=== PATIENT | female | born 1940 | race Two or more races ===

== ENCOUNTER 2018-12-30 22:18 | Inpatient (IN) | payer MEDICARE, MEDICAID ==
[~2018-12-30] VITALS: Ht 157.5 cm; Wt 57.6 kg
--- NOTE | 2018-12-30 22:35 | NUR ---
ED Nurse Note: Pt c/o weakness and fatigued x 1 month, with bilat shoulder pain intermittently. night sweats also. ao4. nad. vss. hard of hearing. family at bedside.
--- NOTE | 2018-12-30 22:55 | NUR ---
ED Nurse Note: iv access established. blood and urine collected; sent down to lab.
[2018-12-30] MEDS ORDERED: Albuterol/Ipratropium 3ml neb HHN ONE (23:00)
[2018-12-30 23:02] VITALS: BP 148/73
[2018-12-30 23:14] LABS: APPEARANCE,URINE CLEAR; BILIRUBIN, URINE NEGATIVE (NEGATIVE); COLOR,URINE PALE YELLOW; GLUCOSE, URINE (UA) NEGATIVE (NEGATIVE); KETONES,URINE NEGATIVE (NEGATIVE); LEUKOCYTE ESTERASE ,URINE NEGATIVE (NEGATIVE); NITRITE,URINE NEGATIVE (NEGATIVE); PH,URINE 7 (4.5-8.0); PROTEIN,URINE NEGATIVE (NEGATIVE); UROBILINOGEN,URINE NORMAL MG/DL (0.0-1.0)
[2018-12-30 23:17] LABS: BASOPHILS % (AUTO) 0.7 % (0.0-2.0); EOSINOPHILS % (AUTO) 4.6 % (0.0-3.0); HEMATOCRIT 41.3 % (37.0-47.0); LYMPHOCYTES % (AUTO) 27.2 % (20.0-45.0); MEAN CORPUSCULAR VOLUME 82 FL (80-99); MONOCYTES % (AUTO) 7.6 % (1.0-10.0); NEUTROPHILS % (AUTO) 59.9 % (45.0-75.0); PLATELET COUNT 237 K/UL (150-450); RED BLOOD COUNT 5.02 M/UL (4.20-5.40); WHITE BLOOD COUNT 8.5 K/UL (4.8-10.8)
--- NOTE | 2018-12-30 23:28 | Emergency Room Report ---
History of Present Illness General Chief Complaint: Generalized Weakness Source: Patient Present Illness HPI Resents with generalized weakness. This been progressing over the last 3 to 4 days. In addition last night she had a temperature up to 102. She is also been coughing and has wheezing. She has a history of asthma. She denies vomiting nausea dysuria diarrhea. She also diabetic. She is been taking her medications for diabetes. She also complains about left-sided chest pain radiating to her left arm. The pain is rated 5/10 and poorly characterized. She is also had dyspnea with wheezing. She has a history of asthma. Hard of hearing. No chills, sore throat, palpitations, nausea, vomiting, diarrhea, dysuria, abdominal pain, shortness of breath, joint pain, rashes, depression, anxiety, visual changes, headache. Allergies: Coded Allergies: No Known Allergies (Unverified , 12/30/18) Patient History Past Medical History: see triage record Social History: Denies: smoking Social History Narrative With her daughter Reviewed Nursing Documentation: PMH: Agreed; PSxH: Agreed Nursing Documentation-PMH Hx Asthma: Yes Hx Diabetes: Yes Review of Systems All Other Systems: negative except mentioned in HPI Physical Exam Vital Signs Date Time Temp Pulse Resp B/P (MAP) Pulse Ox O2 Delivery O2 Flow Rate FiO2 12/30/18 22:24 98.4 81 18 123/73 (90) 96 Room Air 12/30/18 22:57 21 Sp02 EP Interpretation: reviewed, normal General Appearance: well appearing, no apparent distress, GCS 15, non-toxic Head: normocephalic Eyes: bilateral eye normal inspection, bilateral eye PERRL ENT: moist mucus membranes, other - Extremely hard of hearing Neck: supple Respiratory: chest non-tender, lungs clear, normal breath sounds Cardiovascular #1: regular rate, rhythm Cardiovascular #2: 2+ radial (R) Gastrointestinal: normal inspection, normal bowel sounds, non tender, no mass, non-distended Genitourinary: no CVA tenderness Musculoskeletal: back normal, gait/station normal, normal range of motion Neurologic: alert, motor strength/tone normal, DTRs symmetric, sensory intact, oriented - X2 Psychiatric: mood/affect normal Skin: no rash Medical Decision Making Diagnostic Impression: Primary Impression: Chest pain Qualified Codes: R07.9 - Chest pain, unspecified Additional Impressions: Bronchospasm History of fever Weakness ER Course Diabetic patient presents with fever chills dyspnea chest pain and weakness. Differential includes acute myocardial infarction, urinary syndrome, pneumonia, occult infection, UTI, exacerbation of COPD, elect light imbalance, hyperglycemia amongst others. Patient will be evaluated with EKG, chest x-ray and labs occluding blood cultures and lactate. The patient will be treated with IV hydration and observation. Breathing treatments are given. EKG with no acute injury but low voltage. Chest x-ray with pleural plaque. Labs with normal white count no left shift. Initial troponin is negative. Patient somewhat improved but still weak and somewhat dyspneic. Patient needs admission to the hospital telemetry for repeat troponins and observation. Patient had an episode of chills here. Tylenol was given orally. Improved. Admit to telemetry . Laboratory Tests Test 12/30/18 22:40 White Blood Count 8.5 K/UL (4.8-10.8) Red Blood Count 5.02 M/UL (4.20-5.40) Hemoglobin 14.0 G/DL (12.0-16.0) Hematocrit 41.3 % (37.0-47.0) Mean Corpuscular Volume 82 FL (80-99) Mean Corpuscular Hemoglobin 27.9 PG (27.0-31.0) Mean Corpuscular Hemoglobin Concent 33.9 G/DL (32.0-36.0) Red Cell Distribution Width 12.0 % (11.6-14.8) Platelet Count 237 K/UL (150-450) Mean Platelet Volume 6.4 FL (6.5-10.1) L Neutrophils (%) (Auto) 59.9 % (45.0-75.0) Lymphocytes (%) (Auto) 27.2 % (20.0-45.0) Monocytes (%) (Auto) 7.6 % (1.0-10.0) Eosinophils (%) (Auto) 4.6 % (0.0-3.0) H Basophils (%) (Auto) 0.7 % (0.0-2.0) Prothrombin Time 10.0 SEC (9.30-11.50) Prothrombin Time INR 0.9 (0.9-1.1) PTT 27 SEC (23-33) Urine Color Pale yellow Urine Appearance Clear Urine pH 7 (4.5-8.0) Urine Specific [place] 1.010 (1.005-1.035) Urine Protein Negative (NEGATIVE) Urine Glucose (UA) Negative (NEGATIVE) Urine Ketones Negative (NEGATIVE) Urine Blood Negative (NEGATIVE) Urine Nitrite Negative (NEGATIVE) Urine Bilirubin Negative (NEGATIVE) Urine Urobilinogen Normal MG/DL (0.0-1.0) Urine Leukocyte Esterase Negative (NEGATIVE) Sodium Level 140 MMOL/L (136-145) Potassium Level 3.5 MMOL/L (3.5-5.1) Chloride Level 102 MMOL/L (98-107) Carbon Dioxide Level 29 MMOL/L (21-32) Anion Gap 10 mmol/L (5-15) Blood Urea Nitrogen 14 mg/dL (7-18) Creatinine 1.1 MG/DL (0.55-1.30) Estimate Glomerular Filtration Rate mL/min (>60) Glucose Level 83 MG/DL (74-106) Lactic Acid Level 1.80 mmol/L (0.4-2.0) Calcium Level 9.4 MG/DL (8.5-10.1) Magnesium Level 2.0 MG/DL (1.8-2.4) Total Bilirubin 0.5 MG/DL (0.2-1.0) Aspartate Amino Transferase (AST) 22 U/L (15-37) Alanine Aminotransferase (ALT) 24 U/L (12-78) Alkaline Phosphatase 111 U/L (46-116) Total Creatine Kinase 209 U/L (26-308) Troponin I 0.054 ng/mL (0.000-0.056) Pro-B-Type Natriuretic Peptide 793 pg/mL (0-125) H Total Protein 7.9 G/DL (6.4-8.2) Albumin 3.8 G/DL (3.4-5.0) Globulin 4.1 g/dL Albumin/Globulin Ratio 0.9 (1.0-2.7) L Lipase 238 U/L (73-393) EKG Diagnostic Results Rate: normal Rhythm: NSR ST Segments: no acute changes Rhythm Strip Diag. Results EP Interpretation: yes Rhythm: NSR, no PVC's, no ectopy Chest X-Ray Diagnostic Results Chest X-Ray Diagnostic Results : Chest X-Ray Ordered: Yes # of Views/Limited/Complete: 1 View Indication: Other EP Interpretation: Yes Interpretation: no consolidation, no effusion, no pneumothorax, other - Pleural plaque Impression: Other Electronically Signed by: Electronically signed by Marcos Villalba MD Last Vital Signs Date Time Temp Pulse Resp B/P (MAP) Pulse Ox O2 Delivery O2 Flow Rate FiO2 12/31/18 07:47 97.0 73 20 119/62 (81) 98 12/31/18 05:22 Nasal Cannula 28 Status: improved Disposition: ADMITTED INPATIENT Condition: Serious Referrals: NOT CHOSEN IPA/,REFERRING (PCP) Macros Villalba MD Dec 30, 2018 23:28
[2018-12-30 23:30] LABS: INR 0.9 (0.9-1.1)
[2018-12-31 00:03] LABS: ANION GAP 10 mmol/L (5-15); BLOOD UREA NITROGEN 14 mg/dL (7-18); CALCIUM 9.4 MG/DL (8.5-10.1); CARBON DIOXIDE 29 MMOL/L (21-32); CHLORIDE 102 MMOL/L (98-107); CREATININE 1.1 MG/DL (0.55-1.30); POTASSIUM 3.5 MMOL/L (3.5-5.1); SODIUM 140 MMOL/L (136-145)
[2018-12-31 00:13] LABS: ALANINE AMINOTRANSFERASE 24 U/L (12-78); ALBUMIN 3.8 G/DL (3.4-5.0); ALBUMIN/GLOBULIN RATIO 0.9 (1.0-2.7); ALKALINE PHOSPHATASE 111 U/L (46-116); ASPARTATE AMINO TRANSFERASE 22 U/L (15-37); BILIRUBIN,TOTAL 0.5 MG/DL (0.2-1.0); CREATINE KINASE 209 U/L (26-308)
[2018-12-31] MEDS ORDERED: Miralax 17gm pkt ORAL PRN (00:30)
[2018-12-31] MEDS ORDERED: Mylanta II UD 30ml ORAL PRN (00:30)
--- NOTE | 2018-12-31 00:45 | NUR ---
TRANSFER TO FLOOR: Patient transferred to TELEMETRY OVERFLOW 241 as ordered, per AZUL DOAN. Report given to ELIANA RN BY AZUL DUBON. BELONGINGS LIST COMPLETED WITH RECEIVING RN.
--- NOTE | 2018-12-31 00:48 | NUR ---
NURSE NOTES: Received a phone report from AZUL Soto.Patient ambulatory stable,SR on monitor and storage bin tender,A&O x4,Albanian speaking,hard of hearing,tolerated r/air well,skin intact,IV asymptomatic,intact on L AC G 18 SL,meds reconciliation done,waiting patient to bring to the floor
[2018-12-31 01:00] VITALS: BP 132/58
--- NOTE | 2018-12-31 01:00 | NUR ---
NURSE NOTES: Received a patient from ER by tuan from Gordon Levi RN.Patient ambulatory stable,A&Ox4,no c/o SOB,no respiratory distress at this moment,SR on cardiac cath lab technologist,clear lungs sounds bilateral,BS active in all quadrants,belongings list signed,cane at bedside,bed secured in a low safety position,call light within a reach,nice at bedside.Will continue to monitor and follow POC
[2018-12-31 04:00] VITALS: BP 134/62
[2018-12-31] MEDS: Nitroglycerin Subl 0.4mg tab SL PRN ×3 (04:57→05:15)
--- NOTE | 2018-12-31 05:00 | NUR ---
NURSE NOTES: Patient c/o severe chest pain and radiated pain to the L arm.Tylenol given,Ntg given x3,breathing treatment done by RT.EKG done by RN. received a Troponin level 0.060 from Nichole,lab.Called and left massage regarding pt's condition.Waiting for respond.Charge nurse aware.
[2018-12-31] MEDS: Albuterol/Ipratropium 3ml neb HHN PRN ×2 (05:17→15:41)
--- NOTE | 2018-12-31 06:50 | NUR ---
NURSE NOTES: notified regarding patient's condition,waiting for responding,charge nurse aware.
--- NOTE | 2018-12-31 07:00 | NUR ---
NURSE NOTES: Patient sleeping at this moment,no c/o SOB,no s/s of pain at this moment.Next shift will endorse.
--- NOTE | 2018-12-31 07:20 | NUR ---
HAND-OFF: Report given to AZUL Mcadams.Patient sleeping at this moment,family at bedside.
[2018-12-31] MEDS ORDERED: Morphine Sulfate 2mg/ml Inj(IV/IM USE ONLY) IVP SCH (07:24)
--- NOTE | 2018-12-31 07:25 | NUR ---
NURSE NOTES: Report received from Patricia Jeffery RN.Pt resting in bed awake,alert oriented,but NENANA in no resp distress c/o discomfort like chest pain , SR on the monitor,kept NPO IV site heplock to LAC intact,skin warm and dry call torres within reach ,SR up x2 HOB elevated,bed lock in lowest position,will continue with plans of care, will give PRN medic for pain,family member at bedside.
[2018-12-31 07:47] VITALS: BP 119/62
--- NOTE | 2018-12-31 08:46 | History and Physical ---
History of Present Illness General Date patient seen: Dec 31, 2018 Reason for Hospitalization: Generalized Weakness Present Illness HPI presents with generalized weakness. This been progressing over the last 3 to 4 days. In addition last night she had a temperature up to 102. She is also been coughing and has wheezing. She has a history of asthma. She denies vomiting nausea dysuria diarrhea. She also diabetic. She is been taking her medications for diabetes. She also complains about left-sided chest pain radiating to her left arm. Patient states the pain improved with nitro and is worse on exertion. Patient states the cough is chronic. Denies current chills or fever, denies abd pain, n , v, dysuria. Allergies: Coded Allergies: No Known Allergies (Unverified , 12/30/18) Patient History Healthcare decision maker Resuscitation status Full Code Advanced Directive on File No Past Medical/Surgical History Past Medical/Surgical History: (1) 23-polyvalent pneumococcal polysaccharide vaccine indication of diabetes in patient 6 to 64 years of age (2) Asthma Review of Systems All Other Systems: negative except mentioned in HPI Physical Exam Last 24 Hour Vital Signs Date Time Temp Pulse Resp B/P (MAP) Pulse Ox O2 Delivery O2 Flow Rate FiO2 12/31/18 07:47 97.0 73 20 119/62 (81) 98 12/31/18 05:22 81 22 97 Nasal Cannula 28 12/31/18 05:16 74 18 90 Room Air 21 12/31/18 05:15 113/64 12/31/18 05:08 119/72 12/31/18 04:57 125/63 12/31/18 04:03 81 12/31/18 04:00 97.9 76 20 134/62 (86) 97 12/31/18 01:49 Room Air 12/31/18 01:00 97.3 80 20 132/58 (82) 95 12/31/18 00:45 98.4 78 22 148/73 99 Room Air 21 12/31/18 00:33 98.4 12/30/18 23:15 77 22 99 Room Air 21 12/30/18 23:02 67 18 Room Air 21 12/30/18 23:02 98.4 78 18 148/73 97 Room Air 21 12/30/18 23:01 21 12/30/18 22:57 67 18 97 Room Air 21 12/30/18 22:24 98.4 81 18 123/73 (90) 96 Room Air Laboratory Tests Test 12/30/18 22:40 12/31/18 03:11 White Blood Count 8.5 K/UL (4.8-10.8) Red Blood Count 5.02 M/UL (4.20-5.40) Hemoglobin 14.0 G/DL (12.0-16.0) Hematocrit 41.3 % (37.0-47.0) Mean Corpuscular Volume 82 FL (80-99) Mean Corpuscular Hemoglobin 27.9 PG (27.0-31.0) Mean Corpuscular Hemoglobin Concent 33.9 G/DL (32.0-36.0) Red Cell Distribution Width 12.0 % (11.6-14.8) Platelet Count 237 K/UL (150-450) Mean Platelet Volume 6.4 FL (6.5-10.1) L Neutrophils (%) (Auto) 59.9 % (45.0-75.0) Lymphocytes (%) (Auto) 27.2 % (20.0-45.0) Monocytes (%) (Auto) 7.6 % (1.0-10.0) Eosinophils (%) (Auto) 4.6 % (0.0-3.0) H Basophils (%) (Auto) 0.7 % (0.0-2.0) Prothrombin Time 10.0 SEC (9.30-11.50) Prothromb Time International Ratio 0.9 (0.9-1.1) Activated Partial Thromboplast Time 27 SEC (23-33) Urine Color Pale yellow Urine Appearance Clear Urine pH 7 (4.5-8.0) Urine Specific [place] 1.010 (1.005-1.035) Urine Protein Negative (NEGATIVE) Urine Glucose (UA) Negative (NEGATIVE) Urine Ketones Negative (NEGATIVE) Urine Blood Negative (NEGATIVE) Urine Nitrite Negative (NEGATIVE) Urine Bilirubin Negative (NEGATIVE) Urine Urobilinogen Normal MG/DL (0.0-1.0) Urine Leukocyte Esterase Negative (NEGATIVE) Sodium Level 140 MMOL/L (136-145) Potassium Level 3.5 MMOL/L (3.5-5.1) Chloride Level 102 MMOL/L (98-107) Carbon Dioxide Level 29 MMOL/L (21-32) Anion Gap 10 mmol/L (5-15) Blood Urea Nitrogen 14 mg/dL (7-18) Creatinine 1.1 MG/DL (0.55-1.30) Estimat Glomerular Filtration Rate mL/min (>60) Glucose Level 83 MG/DL (74-106) Lactic Acid Level 1.80 mmol/L (0.4-2.0) Calcium Level 9.4 MG/DL (8.5-10.1) Magnesium Level 2.0 MG/DL (1.8-2.4) Total Bilirubin 0.5 MG/DL (0.2-1.0) Aspartate Amino Transf (AST/SGOT) 22 U/L (15-37) Alanine Aminotransferase (ALT/SGPT) 24 U/L (12-78) Alkaline Phosphatase 111 U/L (46-116) Total Creatine Kinase 209 U/L (26-308) Troponin I 0.054 ng/mL (0.000-0.056) 0.060 ng/mL (0.000-0.056) Pro-B-Type Natriuretic Peptide 793 pg/mL (0-125) H Total Protein 7.9 G/DL (6.4-8.2) Albumin 3.8 G/DL (3.4-5.0) Globulin 4.1 g/dL Albumin/Globulin Ratio 0.9 (1.0-2.7) L Lipase 238 U/L (73-393) Height (Feet): 5 Height (Inches): 2.00 Weight (Pounds): 132 Medications Current Medications Medications (Trade) Dose Ordered Sig/Tangela Route PRN Reason Start Time Stop Time Status Last Admin Dose Admin Acetaminophen (Tylenol) 650 mg Q4H PRN ORAL Mild Pain (Pain Scale 1-3) 12/31/18 04:00 01/30/19 03:59 12/31/18 04:55 Al Hydroxide/Mg Hydroxide (Mylanta II) 30 ml Q6H PRN ORAL dyspepsia 12/31/18 00:30 01/30/19 00:29 Albuterol/ Ipratropium (Albuterol/ Ipratropium) 3 ml Q6H PRN HHN Shortness of Breath 12/31/18 00:30 01/05/19 00:29 12/31/18 05:17 Aspirin (ASA) 81 mg DAILY ORAL 12/31/18 09:00 01/30/19 08:59 Dextrose (Dextrose 50%) 25 ml Q30M PRN IV Hypoglycemia 12/31/18 00:30 01/30/19 00:29 Dextrose (Dextrose 50%) 50 ml Q30M PRN IV Hypoglycemia 12/31/18 00:30 01/30/19 00:29 Diphenhydramine HCl (Benadryl) 25 mg Q6H PRN ORAL Itching/Pruritis 12/31/18 00:30 01/30/19 00:29 Docusate Sodium (Colace) 100 mg EVERY 12 HOURS ORAL 12/31/18 09:00 01/30/19 08:59 Heparin Sodium (Porcine) (Heparin 5000 units/ml) 5,000 units EVERY 12 HOURS SUBQ 12/31/18 09:00 01/30/19 08:59 Nitroglycerin (Ntg) 0.4 mg Q5M PRN SL Prn Chest Pain 12/31/18 00:30 01/30/19 00:29 12/31/18 05:15 Ondansetron HCl (Zofran) 4 mg Q6H PRN IVP Nausea & Vomiting 12/31/18 00:30 01/30/19 00:29 Polyethylene Glycol (Miralax) 17 gm DAILYPRN PRN ORAL Constipation 12/31/18 00:30 01/30/19 00:29 Objective Narrative GEN: WWN, NAD, Alert CV: RRR, no M, R, G, no jvd RESP: CTAB, no w/r/c ABD: normal bowel sounds, soft, mild diffuse tenderness EXT: normal muscle tone, no tenderness NEURO: grossly normal, no tremors, a x o x 3 Assessment/Plan Diagnosis [place] I: 78 yo F PMH of DM-2, HTN, DLD, Asthma, Osteoperosis, presents complaining of left sided exertional chest pain,fever of 102, and weakness x 3 months. # NSTEMI - trend troponin - trend ekg's - tele - tte - cards consult: Dr. Melo - keep npo except meds - lipitor - asa - hep gtt # Fever- resolved - no leukocytosis or active new complaints - us neg - f/u cxr - check blood culture - trend cbc # DM - ISS - accuchecks qac and qhs # DLD - statin - flp # Asthma - stable # Osteoperosis # FULL CODE - time spent in discussion :17 minutes time of my note does not reflect time of encounter Cris Mariee DO Dec 31, 2018 08:46
[2018-12-31] MEDS ORDERED: Heparin 5000 units/ml inj SUBQ SCH (09:00)
--- NOTE | 2018-12-31 09:00 | NUR ---
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
[2018-12-31] MEDS: Docusate 100mg cap ORAL SCH ×2 (09:06→20:44)
[2018-12-31] MEDS: Aspirin Baby 81mg ORAL SCH (09:06)
--- NOTE | 2018-12-31 09:45 | NUR ---
NURSE NOTES: Called Dr Mariee re critical value Troponin 0.175,call returned but no orders noted.
--- NOTE | 2018-12-31 10:35 | NUR ---
NURSE NOTES: P.T working with pt,ambulated around the hallway with cane,activity tolerated ,no sob presented.
[2018-12-31 12:00] VITALS: BP 115/50
[2018-12-31] MEDS ORDERED: Heparin 5000 units/ml inj IV SCH (12:04)
[2018-12-31] MEDS ORDERED: Heparin 25,000u/D5W 500ml 500 ML IV SCH (12:05)
--- NOTE | 2018-12-31 13:05 | Diagnostic Imaging Report ---
Indication: Cough, shortness of breath Technique: One view of the chest Comparison: None Findings: Calcified granuloma projects in the left suprahilar region. Lungs and pleural spaces are otherwise clear. The heart size is normal. Impression: Evidence of old granulomatous disease. No acute process
--- NOTE | 2018-12-31 13:25 | NUR ---
P.T Note: Evaluation completed and treatment initiated. Please refer to P.T evaluation for current functional status. Please refer to P.T evaluation for current functional status. Pt is alert, oriented x 4, pleasant and cooperative. Pt denied c/o pain but reports c/o generalized weakness. Pt currently require SBA X 1 for bed mobilities, transfers and gait/ambulation activities using her cane for return to PLOF. Skilled P.T service is warranted to improve her strength and endurance to increase her mobility independence and safety. Pt is cleared for OOB activities with nursing. Thank you for this referral.
--- NOTE | 2018-12-31 13:34 | Consultation ---
History of Present Illness General Date patient seen: Dec 31, 2018 Time patient seen: 13:31 Chief Complaint: Generalized Weakness Present Illness HPI Pt c/o weakness and fatigued x 1 month. Patient c/o severe chest pain and radiated pain to the L arm. Troponin 0.06. Hx of DM. Allergies: Coded Allergies: No Known Allergies (Unverified , 12/30/18) Patient History Healthcare decision maker Resuscitation status Full Code Advanced Directive on File No Review of Systems Constitutional: Reports: no symptoms Eye: Reports: no symptoms ENT: Reports: no symptoms Respiratory: Reports: cough, orthopnea, shortness of breath Cardiovascular: Reports: chest pain, palpitations Gastrointestinal: Reports: no symptoms Genitourinary: Reports: no symptoms Musculoskeletal: Reports: no symptoms Skin: Reports: no symptoms Psychiatric: Reports: no symptoms Neurological: Reports: no symptoms Endocrine: Reports: no symptoms Hematologic/Lymphatic: Reports: no symptoms Physical Exam General Appearance: no apparent distress, alert Lines, tubes and drains: peripheral HEENT: normocephalic, atraumatic, anicteric, mucous membranes moist, PERRL Neck: non-tender, normal alignment, supple, normal inspection Respiratory/Chest: chest wall non-tender, lungs clear, normal breath sounds Cardiovascular/Chest: normal peripheral pulses, normal rate, regular rhythm Abdomen: normal bowel sounds, non tender, soft, no organomegaly, no mass Extremities: normal range of motion, non-tender Skin Exam: normal pigmentation, warm/dry, cyanotic 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 II-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 grossly normal, no motor/sensory deficits Last 24 Hour Vital Signs Date Time Temp Pulse Resp B/P (MAP) Pulse Ox O2 Delivery O2 Flow Rate FiO2 12/31/18 12:00 96.8 60 20 115/50 (71) 96 12/31/18 12:00 63 12/31/18 09:00 Room Air 12/31/18 08:00 82 12/31/18 07:47 97.0 73 20 119/62 (81) 98 12/31/18 05:22 81 22 97 Nasal Cannula 28 12/31/18 05:16 74 18 90 Room Air 21 12/31/18 05:15 113/64 12/31/18 05:08 119/72 12/31/18 04:57 125/63 12/31/18 04:03 81 12/31/18 04:00 97.9 76 20 134/62 (86) 97 12/31/18 01:49 Room Air 12/31/18 01:00 97.3 80 20 132/58 (82) 95 12/31/18 00:45 98.4 78 22 148/73 99 Room Air 21 12/31/18 00:33 98.4 12/30/18 23:15 77 22 99 Room Air 21 12/30/18 23:02 67 18 Room Air 21 12/30/18 23:02 98.4 78 18 148/73 97 Room Air 21 12/30/18 23:01 21 12/30/18 22:57 67 18 97 Room Air 21 12/30/18 22:24 98.4 81 18 123/73 (90) 96 Room Air Laboratory Tests Test 12/30/18 22:40 12/31/18 03:11 12/31/18 08:45 12/31/18 11:50 White Blood Count 8.5 K/UL (4.8-10.8) Red Blood Count 5.02 M/UL (4.20-5.40) Hemoglobin 14.0 G/DL (12.0-16.0) Hematocrit 41.3 % (37.0-47.0) Mean Corpuscular Volume 82 FL (80-99) Mean Corpuscular Hemoglobin 27.9 PG (27.0-31.0) Mean Corpuscular Hemoglobin Concent 33.9 G/DL (32.0-36.0) Red Cell Distribution Width 12.0 % (11.6-14.8) Platelet Count 237 K/UL (150-450) Mean Platelet Volume 6.4 FL (6.5-10.1) L Neutrophils (%) (Auto) 59.9 % (45.0-75.0) Lymphocytes (%) (Auto) 27.2 % (20.0-45.0) Monocytes (%) (Auto) 7.6 % (1.0-10.0) Eosinophils (%) (Auto) 4.6 % (0.0-3.0) H Basophils (%) (Auto) 0.7 % (0.0-2.0) Prothrombin Time 10.0 SEC (9.30-11.50) Prothromb Time International Ratio 0.9 (0.9-1.1) Activated Partial Thromboplast Time 27 SEC (23-33) 30 SEC (23-33) Urine Color Pale yellow Urine Appearance Clear Urine pH 7 (4.5-8.0) Urine Specific [place] 1.010 (1.005-1.035) Urine Protein Negative (NEGATIVE) Urine Glucose (UA) Negative (NEGATIVE) Urine Ketones Negative (NEGATIVE) Urine Blood Negative (NEGATIVE) Urine Nitrite Negative (NEGATIVE) Urine Bilirubin Negative (NEGATIVE) Urine Urobilinogen Normal MG/DL (0.0-1.0) Urine Leukocyte Esterase Negative (NEGATIVE) Sodium Level 140 MMOL/L (136-145) Potassium Level 3.5 MMOL/L (3.5-5.1) Chloride Level 102 MMOL/L (98-107) Carbon Dioxide Level 29 MMOL/L (21-32) Anion Gap 10 mmol/L (5-15) Blood Urea Nitrogen 14 mg/dL (7-18) Creatinine 1.1 MG/DL (0.55-1.30) Estimat Glomerular Filtration Rate mL/min (>60) Glucose Level 83 MG/DL (74-106) Lactic Acid Level 1.80 mmol/L (0.4-2.0) Calcium Level 9.4 MG/DL (8.5-10.1) Magnesium Level 2.0 MG/DL (1.8-2.4) Total Bilirubin 0.5 MG/DL (0.2-1.0) Aspartate Amino Transf (AST/SGOT) 22 U/L (15-37) Alanine Aminotransferase (ALT/SGPT) 24 U/L (12-78) Alkaline Phosphatase 111 U/L (46-116) Total Creatine Kinase 209 U/L (26-308) Troponin I 0.054 ng/mL (0.000-0.056) 0.060 ng/mL (0.000-0.056) 0.175 ng/mL (0.000-0.056) Pro-B-Type Natriuretic Peptide 793 pg/mL (0-125) H Total Protein 7.9 G/DL (6.4-8.2) Albumin 3.8 G/DL (3.4-5.0) Globulin 4.1 g/dL Albumin/Globulin Ratio 0.9 (1.0-2.7) L Lipase 238 U/L (73-393) Thyroid Stimulating Hormone (TSH) 3.215 uiU/mL (0.358-3.740) Height (Feet): 5 Height (Inches): 2.00 Weight (Pounds): 132 Medications Current Medications Medications (Trade) Dose Ordered Sig/Tangela Route PRN Reason Start Time Stop Time Status Last Admin Dose Admin Acetaminophen (Tylenol) 650 mg Q4H PRN ORAL Mild Pain (Pain Scale 1-3) 12/31/18 04:00 01/30/19 03:59 12/31/18 04:55 Al Hydroxide/Mg Hydroxide (Mylanta II) 30 ml Q6H PRN ORAL dyspepsia 12/31/18 00:30 01/30/19 00:29 Albuterol/ Ipratropium (Albuterol/ Ipratropium) 3 ml Q6H PRN HHN Shortness of Breath 12/31/18 00:30 01/05/19 00:29 12/31/18 05:17 Aspirin (ASA) 81 mg DAILY ORAL 12/31/18 09:00 01/30/19 08:59 12/31/18 09:06 Atorvastatin Calcium (Lipitor) 80 mg BEDTIME ORAL 12/31/18 21:00 01/30/19 20:59 Dextrose (Dextrose 50%) 25 ml Q30M PRN IV Hypoglycemia 12/31/18 00:30 01/30/19 00:29 Dextrose (Dextrose 50%) 50 ml Q30M PRN IV Hypoglycemia 12/31/18 00:30 01/30/19 00:29 Diphenhydramine HCl (Benadryl) 25 mg Q6H PRN ORAL Itching/Pruritis 12/31/18 00:30 01/30/19 00:29 Docusate Sodium (Colace) 100 mg EVERY 12 HOURS ORAL 12/31/18 09:00 01/30/19 08:59 12/31/18 09:06 Heparin Sodium (Porcine) (Heparin 5000 units/ml) 1,800 units ONCE IV 12/31/18 12:04 12/31/18 14:00 12/31/18 12:21 Heparin Sodium/ Dextrose 500 ml @ 14.712 mls/ hr ADJUST PER PROTOCOL IV 12/31/18 12:05 01/30/19 12:04 12/31/18 12:23 Nitroglycerin (Ntg) 0.4 mg Q5M PRN SL Prn Chest Pain 12/31/18 00:30 01/30/19 00:29 12/31/18 05:15 Ondansetron HCl (Zofran) 4 mg Q6H PRN IVP Nausea & Vomiting 12/31/18 00:30 01/30/19 00:29 Polyethylene Glycol (Miralax) 17 gm DAILYPRN PRN ORAL Constipation 12/31/18 00:30 01/30/19 00:29 Assessment/Plan Status: stable Assessment/Plan: Assessment/Plan 78 yo F PMH of DM-2, HTN, DLD, Asthma, Osteoperosis, presents complaining of left sided exertional chest pain,fever of 102, and weakness x 3 months. Chest pain/elevated troponin -trend EKG/Troponin -Echocardiogram -Nuclear stress test -Aspirin -Heparin gtt DM - ISS - accuchecks qac and qhs DLD - continue statin Marcos Melo MD Dec 31, 2018 13:34
[2018-12-31] MEDS ORDERED: Lexiscan 0.4mg/5ml syringe IV PRN (13:37)
--- NOTE | 2018-12-31 14:50 | NUR ---
NURSE NOTES: Called DR Melo re clarification order for Lexiscan Stress test.Per caseworker protective services Nils,pt has asthma so Lexiscan is contra indicated but [place] will be okay.Still awaiting return of call.
[2018-12-31 15:42] VITALS: BP 136/67
--- NOTE | 2018-12-31 19:00 | NUR ---
NURSE NOTES: Pt report received from DENICE URIBE. pt appears to be stable. pt vital signs are stable. pt is Alert and oriented times 3, able to follow commands. pt electrical drafter shows NRS with no abnormalities noted. pt is on room air able to sat at 100%, no abnormalities noted. however, pt is hard of hearing. pt running HEP drip at 12U/KG/HR, IV site stable. bed locked and low, bed armed, bed rails up times 3. will continue plan of care.
--- NOTE | 2018-12-31 19:04 | NUR ---
HAND-OFF: Report given to Amadou Langford RN still awaiting for PTT results drawn at 1830.
--- NOTE | 2018-12-31 19:35 | NUR ---
NURSE NOTES: [facility] pharmacist called. stated to keep same hep (12U/kg/hr) with the newly resulted PTT. also stated to place order for timed PTT at 4AM. will carry out orders.
--- NOTE | 2018-12-31 19:44 | Cardiology Report ---
APPROVED REPORT EXAM: Two-dimensional and M-mode echocardiogram with Doppler and color Doppler. INDICATION Chest Pain M-Mode DIMENSIONS IVSd0.7 (0.7-1.1cm)Left Atrium (MM)3.3 (1.6-4.0cm) LVDd4.5 (3.5-5.6cm)Aortic Root2.6 (2.0-3.7cm) PWd0.9 (0.7-1.1cm)Aortic Cusp Exc.1.8 (1.5-2.0cm) IVSs1.2 cm LVDs3.5 (2.5-4.0cm) PWs1.1 cm Normal left ventricular chamber size, systolic function and wall motion . Left ventricular ejection fraction estimated to be 60-65%. Anterior Echo-free space, may be due to pericardial fat or effusion. All other cardiac chamber sizes are within normal limits. Focal aortic valve sclerosis with adequate cusp excursion. Thickened mitral valve leaflets with normal excursion. Mitral annulus and aortic root calcification. Normal pulmonic valve structure. Normal tricuspid valve structure. IVC is at normal size with physiologic collapse. A color flow and spectral Doppler study was performed and revealed: Moderate mitral regurgitation. Mitral diastolic velocities suggest reduced left ventricular relaxation c/w mild LV diastolic dysfunction (Grade I ). Mild tricuspid regurgitation. Tricuspid systolic velocities suggests peak right ventricular systolic pressure of 29 mmHg.
--- NOTE | 2018-12-31 19:52 | Cardiology Report ---
APPROVED REPORT EKG Measurement Heart [id number] Normal sinus rhythm Low voltage QRS Abnormal ECG
--- NOTE | 2018-12-31 19:53 | Cardiology Report ---
APPROVED REPORT EKG Measurement Heart [id number] Normal sinus rhythm Low voltage QRS Borderline ECG
[2018-12-31 20:00] VITALS: BP 151/82
[2018-12-31] MEDS ORDERED: Atorvastatin 80mg tab ORAL SCH (21:00)
--- NOTE | 2018-12-31 21:53 | NUR ---
NURSE NOTES: Contacted MD Melo office and spoke with bertha. i relayed message that Pt did not receive the cardiac stress test earlier today due to the fact that pt could not receive Lexiscan medication (for the cardiac stress test). awaiting new orders.
[2019-01-01] VITALS (21 sets, daily range): BP systolic 108–136; BP diastolic 38–96
--- NOTE | 2019-01-01 | NUR ---
NURSE NOTES: Received patient from Amadou LIANG from SDU. Patient on room air, no s/s of respiratory distress. Alert and oriented x4. Family at bedside. Bed in low position, locked, call light within reach. Patient on heparin iv infusing at 12units/kg/hr, no signs of bleeding observed. Patient verbalized understanding that she is NPO and not to have anything to eat or drink. No c/o pain.
--- NOTE | 2019-01-01 | NUR ---
HAND-OFF: Report given to SHERYL LEON RN. Pt transfered to TELE 206-2. pt remains in stable condition. family at bed side. all belongings transferred.
[2019-01-01] MEDS: Albuterol/Ipratropium 3ml neb HHN PRN ×2 (01:26→10:40)
[2019-01-01 03:43] LABS: BASOPHILS % (AUTO) 1.3 % (0.0-2.0); EOSINOPHILS % (AUTO) 5.2 % (0.0-3.0); HEMOGLOBIN 13.3 G/DL (12.0-16.0); LYMPHOCYTES % (AUTO) 27.5 % (20.0-45.0); MEAN CORPUSCULAR VOLUME 85 FL (80-99); MONOCYTES % (AUTO) 7.6 % (1.0-10.0); NEUTROPHILS % (AUTO) 58.4 % (45.0-75.0); PLATELET COUNT 214 K/UL (150-450); RED BLOOD COUNT 4.81 M/UL (4.20-5.40); RED CELL DISTRIBUTION WIDTH 12.4 % (11.6-14.8); WHITE BLOOD COUNT 7.8 K/UL (4.8-10.8)
[2019-01-01 04:03] LABS: CHOLESTEROL 129 MG/DL (< 200); HDL CHOLESTEROL 46 MG/DL (40-60); TRIGLYCERIDES 78 MG/DL (30-150)
[2019-01-01 04:09] LABS: ANION GAP 7 mmol/L (5-15); BLOOD UREA NITROGEN 8 mg/dL (7-18); CALCIUM 8.8 MG/DL (8.5-10.1); CARBON DIOXIDE 27 MMOL/L (21-32); CHLORIDE 105 MMOL/L (98-107); CREATININE 0.8 MG/DL (0.55-1.30); POTASSIUM 3.8 MMOL/L (3.5-5.1); SODIUM 139 MMOL/L (136-145)
--- NOTE | 2019-01-01 04:22 | NUR ---
NURSE NOTES: Received call from [employer] regarding PTT results and heparin rate change. Placed heparin on hold for 30 min. Will resume at 9units/kg/hr.
--- NOTE | 2019-01-01 04:55 | NUR ---
NURSE NOTES: Heparin restarted at 9units/kg/hr. PTT scheduled for 1100.
[2019-01-01] MEDS ORDERED: Heparin 25,000u/D5W 500ml 500 ML IV SCH (05:00)
--- NOTE | 2019-01-01 06:29 | NUR ---
NURSE NOTES: Attempted to contact Dr. Melo regarding troponin of 0.207. Reached the answering service, no response from qa automation engineer MD.
--- NOTE | 2019-01-01 07:09 | NUR ---
NURSE NOTES: Received call back from Dr. Melo answering service. Dr. Melo relayed message to answering service pass on the message to call the primary MD. Called Dr. Muller's answering service for the oncall MD. No call back from typing section chief MD.
--- NOTE | 2019-01-01 07:18 | NUR ---
CARDIOLOGY Dr. Vizcarra refuses to do Lexiscan or any stress test today due to the troponins trending up.
--- NOTE | 2019-01-01 07:30 | NUR ---
HAND-OFF: Report given to Abril LIANG.
--- NOTE | 2019-01-01 07:47 | NUR ---
NURSE NOTES: Received report from AZUL De La Garza. The patient is sleeping on the bed. The patient reported that the chest pain started early interventionist around 4am. Will notify Dr. Mariee, Dr. Muller, and Dr. Melo immediately. The patient's bed in the lowest position, call light in reach, and fall and aspiration precaution reinforced. Dr. Melo and Dr. Muller was notified regarding last figure of Troponin. IV site on L AC 18G is intact and patent and running Heparin drip 9unit/kg/hr, which is 11.034mL/hr. Will continue plan of care.
--- NOTE | 2019-01-01 08:33 | NUR ---
NURSE NOTES: Reported last figure of Troponin and the patient's complaints of chest pain to Dr. Melo and Dr. Mariee. Dr. Melo ordered to cancel Kristen scan and emergency transfer to [facility] for cardiac cath. Will continue to monitor the patient. Will continue plan of care.
--- NOTE | 2019-01-01 08:38 | NUR ---
NURSE NOTES: Dr. Melo ordered Morphine 2mg q4hr PRN for moderate pain. Will carry out the order.
[2019-01-01] MEDS ORDERED: Morphine Sulfate 2mg/ml Inj(IV/IM USE ONLY) IVP PRN ×2 (08:45→14:00)
[2019-01-01] MEDS: Aspirin Baby 81mg ORAL SCH (09:23)
[2019-01-01] MEDS: Docusate 100mg cap ORAL SCH ×2 (09:23→20:16)
--- NOTE | 2019-01-01 09:36 | NUR ---
NURSE NOTES: Dr. Mariee ordered to be transferred to ICU for Nitro drip. Order carried out. Will continue plan of care until transfer.
--- NOTE | 2019-01-01 11:00 | NUR ---
P.T Note: P.T on hold at this time due to elevated troponin. Pt will be transferring to ICU for further medical management. [facility] P.T services.
--- NOTE | 2019-01-01 11:13 | NUR ---
NURSE NOTES: Spoke with paralegal supervisor and charge nurse of ICU; awaiting nurse and bed to transfer the patient to ICU.
--- NOTE | 2019-01-01 11:34 | NUR ---
NURSE NOTES: Spoke with Antoni, the pharmacist, regarding heparin drip. The patient's time PTT figure is 75. Per protocol and per the pharmacist, keep the same rate and order time'd PTT on 4am tomorrow. Will continue to monitor the patient. Will continue plan of care.
--- NOTE | 2019-01-01 11:55 | NUR ---
HAND-OFF: Report given to AZUL Donohue. Informed that the stat case management consult is in for transferring to [facility] for cardiac cath. IV line on left AC 18G and righ hand 22G are intact and patent. Endorsed plan of care. Addendum: 01/01/19 at 1234 by Saúl Joseph RN Report given to AZUL Donohue @ ICU and [facility] Addendum: 01/01/19 at 1257 by Saúl Joseph RN Belongings checked with the patient and Jayde and all belongings present.
--- NOTE | 2019-01-01 12:00 | NUR ---
NURSE NOTES: Patient transferred to bed H from , Report received by AZUL Samuels. Tx for CP and start Nitro drip. Nitro drip on hold as patient denies any pain at this time. A/Ox4; Bengali speaking only. 2LNC, oxygen saturation 98%, RR 17. BP 125/62, T 99.1, HR 75. NPO maintained. DNR/DNI. LAC 18G, RH 22G patent and asymptomatic. Heparin gtt running@9u/kg/hr, next PTT tomorrow 0400. Patient has only cane as belongings. Bed locked, alarmed and in lowest position.
[2019-01-01] MEDS ORDERED: Nitroglycerin 50mg/250ml btl 250 ML IV SCH (12:18)
[2019-01-01] MEDS ORDERED: Miralax 17gm pkt ORAL PRN (12:30)
[2019-01-01] MEDS ORDERED: Mylanta II UD 30ml ORAL PRN (12:30)
[2019-01-01] MEDS ORDERED: Nitroglycerin Subl 0.4mg tab SL PRN (12:30)
[2019-01-01] MEDS ORDERED: Lexiscan 0.4mg/5ml syringe IV PRN (12:30)
[2019-01-01] MEDS: Heparin 25,000u/D5W 500ml 500 ML IV SCH (13:06)
--- NOTE | 2019-01-01 14:02 | NUR ---
PROTECTION ENGINEERCUSTOMS PORT DIRECTOR SI: CHEST PAIN. ELEVATED TROP. HEPARIN DRIP. NITRO DRIP. T. 99.1 HR 75 RR 18 B/P 125/66 NC-2L SAT 98% APTT 128 GLUCOSE 116 TROPONIN 0.207 NT-PROBNP 968 IS: HEPARIN IV NITRO IV ASA ORAL LIPITOR ORAL COLACE ORAL ICU STATUS
[2019-01-01] MEDS: Nitroglycerin 50mg/250ml btl 250 ML IV SCH (14:22)
--- NOTE | 2019-01-01 15:23 | General Progress Note ---
Assessment/Plan Status: stable Assessment/Plan: 78 yo F PMH of DM-2, HTN, DLD, Asthma, Osteoperosis, presents complaining of left sided exertional chest pain,fever of 102, and weakness x 3 months. # NSTEMI - trend troponin: uptrending - trend ekg's - reviewed tte - tele - cards consult: Dr. Melo - heitor - asa - hep gtt - ntro gtt per cards - notified transfer center and cm, patient needs transfer for cath # Fever- resolved - no leukocytosis or active new complaints - us neg - f/u cxr : reviewed - check blood culture: ngt - trend cbc # DM - ISS - accuchecks qac and qhs # DLD - statin - flp # Asthma - stable # Osteoperosis # FULL CODE time of my note does not reflect time of encounter I spent an additional 27 minutes in additional care time in discussion with specialists and staff Subjective Allergies: Coded Allergies: No Known Allergies (Unverified , 12/30/18) Subjective icu echo doneo trop up Objective Last 24 Hour Vital Signs Date Time Temp Pulse Resp B/P (MAP) Pulse Ox O2 Delivery O2 Flow Rate FiO2 01/01/19 14:22 120/58 01/01/19 13:00 95 18 120/58 (78) 98 01/01/19 12:30 Nasal Cannula 2.0 01/01/19 12:00 99.1 75 18 125/66 (85) 98 01/01/19 12:00 Nasal Cannula 2.0 01/01/19 10:44 85 20 99 Nasal Cannula 2.0 28 01/01/19 10:40 97.9 01/01/19 10:33 81 20 99 Nasal Cannula 2.0 28 01/01/19 09:00 Room Air 01/01/19 08:52 67 20 96 Nasal Cannula 2.0 28 01/01/19 08:00 67 01/01/19 08:00 97.9 66 18 120/58 (78) 98 01/01/19 04:00 97.5 76 18 119/64 (82) 99 01/01/19 04:00 70 01/01/19 01:27 68 18 98 Nasal Cannula 2.0 28 01/01/19 00:00 97.9 66 24 125/64 (84) 94 01/01/19 00:00 69 12/31/18 21:00 Room Air 12/31/18 20:00 60 20 93 Room Air 21 12/31/18 20:00 98.3 73 20 151/82 (105) 99 12/31/18 20:00 65 12/31/18 16:00 75 12/31/18 15:52 64 20 100 Nasal Cannula 2.0 28 12/31/18 15:42 96.8 60 20 136/67 (90) 97 12/31/18 15:41 62 20 98 Nasal Cannula 2.0 28 12/31/18 15:41 65 20 99 Nasal Cannula 2.0 28 Intake and Output 12/31/18 01/01/19 19:00 07:00 Intake Total 73.5609 ml 73.560 ml Balance 73.5609 ml 73.560 ml Intake IV Total 73.5609 ml 73.560 ml # Voids 3 2 # Bowel Movements 1 Laboratory Tests 12/31/18 18:30: Activated Partial Thromboplast Time 92H 01/01/19 03:19: White Blood Count 7.8, Red Blood Count 4.81, Hemoglobin 13.3, Hematocrit 41.0, Mean Corpuscular Volume 85, Mean Corpuscular Hemoglobin 27.6, Mean Corpuscular Hemoglobin Concent 32.4, Red Cell Distribution Width 12.4, Platelet Count 214, Mean Platelet Volume 6.2L, Neutrophils (%) (Auto) 58.4, Lymphocytes (%) (Auto) 27.5, Monocytes (%) (Auto) 7.6, Eosinophils (%) (Auto) 5.2H, Basophils (%) (Auto ) 1.3, Sodium Level 139, Potassium Level 3.8, Chloride Level 105, Carbon Dioxide Level 27, Anion Gap 7, Blood Urea Nitrogen 8, Creatinine 0.8, Estimat Glomerular Filtration Rate , Glucose Level 116H, Calcium Level 8.8, Troponin I 0.207H, Pro-B-Type Natriuretic Peptide 968H, Triglycerides Level 78, Cholesterol Level 129, LDL Cholesterol 75, HDL Cholesterol 46, Cholesterol/HDL Ratio 2.8L 01/01/19 03:45: Activated Partial Thromboplast Time 128H 01/01/19 10:50: Activated Partial Thromboplast Time 75H Height (Feet): 5 Height (Inches): 2.00 Weight (Pounds): 135 Cris Mariee DO Jan 01, 2019 15:22
--- NOTE | 2019-01-01 15:25 | NUR ---
NURSE NOTES: Patient c/o of chest pain 9/10 on pain scale. Nitroglycerin gtt started@5mcg/hr, will titrate until CP alleviated.
[2019-01-01] MEDS ORDERED: Albuterol/Ipratropium 3ml neb HHN PRN (16:00)
--- NOTE | 2019-01-01 18:58 | Cardiology Progress Note ---
Assessment/Plan Status: stable Assessment/Plan Assessment/Plan Status: stable Assessment/Plan: Assessment/Plan 78 yo F PMH of DM-2, HTN, DLD, Asthma, Osteoperosis, presents complaining of left sided exertional chest pain,fever of 102, and weakness x 3 months. Chest pain/elevated troponin -trend EKG/Troponin -Echocardiogram -[facility] -Aspirin -Heparin gtt -nitro gtt DM - ISS - accuchecks qac and qhs DLD - continue statin Subjective Cardiovascular: Reports: no symptoms Respiratory: Reports: no symptoms Gastrointestinal/Abdominal: Reports: no symptoms Genitourinary: Reports: no symptoms Subjective Troponin rising, patient with chest pain, on nitro gtt, [facility] Objective Last 24 Hour Vital Signs Date Time Temp Pulse Resp B/P (MAP) Pulse Ox O2 Delivery O2 Flow Rate FiO2 01/01/19 18:30 74 20 120/62 (81) 100 01/01/19 18:00 81 16 119/50 (73) 97 01/01/19 17:30 74 16 109/61 (77) 99 01/01/19 17:00 70 20 108/60 (76) 100 01/01/19 16:30 75 20 111/64 (80) 100 01/01/19 16:00 97.3 75 18 109/43 (65) 98 01/01/19 16:00 Nasal Cannula 2.0 01/01/19 16:00 86 01/01/19 15:30 72 20 108/42 (64) 100 01/01/19 15:00 95 18 128/52 (77) 98 01/01/19 14:30 95 18 136/46 (76) 98 01/01/19 14:22 120/58 01/01/19 14:00 72 18 117/38 (64) 98 01/01/19 13:00 95 18 120/58 (78) 98 01/01/19 12:30 Nasal Cannula 2.0 01/01/19 12:00 99.1 75 18 125/66 (85) 98 01/01/19 12:00 Nasal Cannula 2.0 01/01/19 10:44 85 20 99 Nasal Cannula 2.0 28 01/01/19 10:40 97.9 01/01/19 10:33 81 20 99 Nasal Cannula 2.0 28 01/01/19 09:00 Room Air 01/01/19 08:52 67 20 96 Nasal Cannula 2.0 28 01/01/19 08:00 67 01/01/19 08:00 97.9 66 18 120/58 (78) 98 01/01/19 04:00 97.5 76 18 119/64 (82) 99 01/01/19 04:00 70 01/01/19 01:27 68 18 98 Nasal Cannula 2.0 28 01/01/19 00:00 97.9 66 24 125/64 (84) 94 01/01/19 00:00 69 12/31/18 21:00 Room Air 12/31/18 20:00 60 20 93 Room Air 21 12/31/18 20:00 98.3 73 20 151/82 (105) 99 12/31/18 20:00 65 General Appearance: alert EENT: PERRL/EOMI, normal ENT inspection, TMs normal, pharynx normal Neck: non-tender, normal alignment, supple, normal inspection, no JVD Rhythm: NSR Cardiovascular: normal peripheral pulses, normal rate, regular rhythm Respiratory/Chest: chest wall non-tender, lungs clear, normal breath sounds Abdomen: normal bowel sounds, non tender, soft, no organomegaly Extremities: normal range of motion, non-tender, normal inspection, no calf tenderness, no swelling Neurologic: airplane dispatch clerk II-XII grossly normal, no motor/sensory deficits Intake and Output 12/31/18 01/01/19 19:00 07:00 Intake Total 73.5609 ml 84.594 ml Balance 73.5609 ml 84.594 ml Intake IV Total 73.5609 ml 84.594 ml # Voids 3 2 # Bowel Movements 1 Laboratory Tests Test 01/01/19 03:19 01/01/19 03:45 01/01/19 10:50 White Blood Count 7.8 K/UL (4.8-10.8) Red Blood Count 4.81 M/UL (4.20-5.40) Hemoglobin 13.3 G/DL (12.0-16.0) Hematocrit 41.0 % (37.0-47.0) Mean Corpuscular Volume 85 FL (80-99) Mean Corpuscular Hemoglobin 27.6 PG (27.0-31.0) Mean Corpuscular Hemoglobin Concent 32.4 G/DL (32.0-36.0) Red Cell Distribution Width 12.4 % (11.6-14.8) Platelet Count 214 K/UL (150-450) Mean Platelet Volume 6.2 FL (6.5-10.1) L Neutrophils (%) (Auto) 58.4 % (45.0-75.0) Lymphocytes (%) (Auto) 27.5 % (20.0-45.0) Monocytes (%) (Auto) 7.6 % (1.0-10.0) Eosinophils (%) (Auto) 5.2 % (0.0-3.0) H Basophils (%) (Auto) 1.3 % (0.0-2.0) Sodium Level 139 MMOL/L (136-145) Potassium Level 3.8 MMOL/L (3.5-5.1) Chloride Level 105 MMOL/L (98-107) Carbon Dioxide Level 27 MMOL/L (21-32) Anion Gap 7 mmol/L (5-15) Blood Urea Nitrogen 8 mg/dL (7-18) Creatinine 0.8 MG/DL (0.55-1.30) Estimat Glomerular Filtration Rate mL/min (>60) Glucose Level 116 MG/DL (74-106) H Calcium Level 8.8 MG/DL (8.5-10.1) Troponin I 0.207 ng/mL (0.000-0.056) Pro-B-Type Natriuretic Peptide 968 pg/mL (0-125) H Triglycerides Level 78 MG/DL (30-150) Cholesterol Level 129 MG/DL (< 200) LDL Cholesterol 75 mg/dL (<100) HDL Cholesterol 46 MG/DL (40-60) Cholesterol/HDL Ratio 2.8 (3.3-4.4) L Activated Partial Thromboplast Time 128 SEC (23-33) H 75 SEC (23-33) H Microbiology Date/Time Source Procedure Growth Status 12/30/18 22:55 Blood Blood Culture - Preliminary NO GROWTH AFTER 24 HOURS Resulted 12/30/18 22:40 Blood Blood Culture - Preliminary NO GROWTH AFTER 24 HOURS Resulted Marcos Melo MD Jan 01, 2019 18:58
--- NOTE | 2019-01-01 19:22 | NUR ---
HAND-OFF: Report given to AZUL Anaya.
--- NOTE | 2019-01-01 19:25 | NUR ---
NURSE NOTES: Received report from Jayde Fortune RN. Patient is alert and oriented x4. No acute distress/SOB on room air. Patient denies any pain/discomfort at this time. Left AC 18G IV intact, clean and running with heparin drip 11.034ml/hr. Right hand 22G intact, clean and running with nitro drip @10mcg/min. Niece is at the bedside. Call-light placed in easy reach. Will continue plan of care.
[2019-01-01] MEDS ORDERED: Atorvastatin 80mg tab ORAL SCH (21:00)
--- NOTE | 2019-01-01 21:00 | NUR ---
NURSE NOTES: Due medication given. Patient denies any pain/discomfort at this time. Will continue plan of care.
--- NOTE | 2019-01-01 22:00 | NUR ---
NURSE NOTES: Omar/Holly took cane to home.
[2019-01-02] VITALS (26 sets, daily range): BP systolic 92–144; BP diastolic 43–102
--- NOTE | 2019-01-02 | NUR ---
NURSE NOTES: Patient asleep. No acute distress/SOB noted. Will continue plan of care.
[2019-01-02] MEDS: Heparin 25,000u/D5W 500ml 500 ML IV SCH (00:02)
--- NOTE | 2019-01-02 02:02 | NUR ---
NURSE NOTES: Patient still asleep.
--- NOTE | 2019-01-02 04:06 | NUR ---
NURSE NOTES: Partial bed bath and oral care given.
[2019-01-02 04:41] LABS: BASOPHILS % (AUTO) 1.4 % (0.0-2.0); HEMATOCRIT 42.9 % (37.0-47.0); HEMOGLOBIN 13.9 G/DL (12.0-16.0); LYMPHOCYTES % (AUTO) 26.1 % (20.0-45.0); MEAN CORPUSCULAR VOLUME 85 FL (80-99); MONOCYTES % (AUTO) 7.4 % (1.0-10.0); PLATELET COUNT 212 K/UL (150-450); RED BLOOD COUNT 5.04 M/UL (4.20-5.40); RED CELL DISTRIBUTION WIDTH 12.6 % (11.6-14.8); WHITE BLOOD COUNT 7.1 K/UL (4.8-10.8)
[2019-01-02 04:51] LABS: ANION GAP 8 mmol/L (5-15); BLOOD UREA NITROGEN 11 mg/dL (7-18); CARBON DIOXIDE 24 MMOL/L (21-32); CHLORIDE 106 MMOL/L (98-107); CREATININE 0.9 MG/DL (0.55-1.30); POTASSIUM 3.7 MMOL/L (3.5-5.1); SODIUM 138 MMOL/L (136-145)
[2019-01-02] MEDS ORDERED: Heparin 25,000u/D5W 500ml 500 ML IV SCH ×4 (06:00→20:01)
[2019-01-02] MEDS ORDERED: Heparin 5000 units/ml inj IV SCH ×2 (06:00→19:58)
--- NOTE | 2019-01-02 06:05 | NUR ---
NURSE NOTES: Talked with Pharmacist. Heparin drip rate change to 11 unit/kg/hr. and heparin bolus 2500 units IV once.
--- NOTE | 2019-01-02 07:10 | NUR ---
NURSE NOTES: Received pt from AZUL Anaya. Devaughn/Ox4; Romanian speaking only. Calm and cooperative. DNR/DNI. LAC 18G running heparin@11units/hr, RH 22G running Nitro drip @10mcg/kg/hr. Next PTT due at 1200. 2LNC, spo2 100%, RR 17. Breathing even and unlabored. Denies chest pain at this time. Sinus rhythm on front desk monitor; HR 84. Bed locked, alarmed and in lowest position.
--- NOTE | 2019-01-02 07:25 | NUR ---
HAND-OFF: Report given to Jayde Fortune RN. Endorsed plan of care.
[2019-01-02] MEDS ORDERED: Aspirin Baby 81mg ORAL SCH (09:00)
--- NOTE | 2019-01-02 09:04 | NUR ---
CASE MANAGEMENT:REVIEW 01/02/19 SI: NSTEMI 97.5 70 18 108/60 98% ON 2L/NC TROPONIN(+) 0.124 IS: HEPARIN GTT NITRO GTT ASA PO QD : ICU STATUS PLAN: PATIENT IS ON THE LIST AT [facility] TO TRANSFER WHEN BED IS AVAILABLE
--- NOTE | 2019-01-02 09:10 | NUR ---
TRANSFER UPDATE SPOKE WITH JOANNA AT [facility] TRANSFER CTR PATIENT IS ON THE LIST NO BEDS AVAILABLE THEY WILL CALL THE STATION WHEN BED BECOMES AVAILABLE
[2019-01-02] MEDS: Docusate 100mg cap ORAL SCH ×2 (09:23→20:25)
--- NOTE | 2019-01-02 11:42 | NUR ---
NURSE NOTES: Patient complained for increasing CP radiating to left shoulder 11/21, increased nitro drip to 15mcg/kg/hr. Patient did self oral care, lotion applied.
[2019-01-02] MEDS: Nitroglycerin 50mg/250ml btl 250 ML IV SCH (12:28)
--- NOTE | 2019-01-02 12:45 | NUR ---
SHIPS OR BARGES LOADER NOTES SPOKE WITH ZULMA FROM THE TRANSFER UNIT, NO ICU BED AVAILABLE AT THIS TIME. WILL FOLLOW UP. MADE AWARE.
--- NOTE | 2019-01-02 13:00 | NUR ---
NURSE NOTES: PTT 118, spoke with Basilio pharmacist. Heparin drip to be held for 30 minutes and restarted at 8 units/hr. Next PTT ordered for 1900.
--- NOTE | 2019-01-02 14:51 | General Progress Note ---
Assessment/Plan Status: stable Assessment/Plan: 78 yo F PMH of DM-2, HTN, DLD, Asthma, Osteoperosis, presents complaining of left sided exertional chest pain,fever of 102, and weakness x 3 months. # NSTEMI - trend troponin: uptrending-> now down (01/02) - trend ekg's - reviewed tte - tele - cards consult: Dr. Melo - lipitor - asa ok to dc nitro gtt and transfer to tele [facility] # Fever- resolved - no leukocytosis or active new complaints - us neg - f/u cxr : reviewed - check blood culture: ngt - trend cbc # DM - ISS - accuchecks qac and qhs # DLD - statin - flp # Asthma - stable # Osteoperosis # FULL CODE time of my note does not reflect time of encounter I spent an additional 27 minutes in additional care time in discussion with specialists and staff Subjective Date patient seen: Jan 02, 2019 Allergies: Coded Allergies: No Known Allergies (Unverified , 12/30/18) All Systems: reviewed and negative except above Subjective trop downtrending patient denies chest pain, sob or [place] spoken to in [facility] accepted transfer, waiting for bed Objective Last 24 Hour Vital Signs Date Time Temp Pulse Resp B/P (MAP) Pulse Ox O2 Delivery O2 Flow Rate FiO2 01/02/19 14:00 97 19 128/66 (86) 98 01/02/19 13:00 98 19 142/61 (88) 98 01/02/19 12:28 110/70 01/02/19 12:00 87 01/02/19 12:00 99.1 87 19 110/70 (83) 99 01/02/19 12:00 Nasal Cannula 2.0 01/02/19 11:00 82 19 130/62 (84) 98 01/02/19 10:30 88 24 120/62 (81) 96 01/02/19 10:29 87 20 99 Nasal Cannula 2.0 28 01/02/19 10:20 84 22 98 Room Air 21 01/02/19 10:00 87 24 128/58 (81) 96 01/02/19 09:30 94 24 131/69 (89) 96 01/02/19 09:00 79 22 92/43 (59) 98 01/02/19 08:30 87 20 110/59 (76) 96 01/02/19 08:00 74 01/02/19 08:00 98.2 76 19 126/54 (78) 99 01/02/19 08:00 Nasal Cannula 2.0 01/02/19 07:37 98 Nasal Cannula 2.0 28 01/02/19 07:37 70 18 97 Nasal Cannula 2.0 28 01/02/19 07:00 67 16 108/60 (76) 99 01/02/19 06:00 70 20 107/70 (82) 98 01/02/19 05:00 70 20 113/69 (84) 98 01/02/19 04:30 70 20 113/69 (84) 98 01/02/19 04:00 72 01/02/19 04:00 97.5 69 16 110/53 (72) 99 01/02/19 04:00 Nasal Cannula 2.0 01/02/19 03:30 91 24 117/51 (73) 99 01/02/19 03:00 73 17 119/64 (82) 99 01/02/19 02:30 71 19 118/56 (76) 99 01/02/19 02:00 71 16 111/55 (73) 99 01/02/19 01:00 68 17 116/57 (76) 100 01/02/19 00:00 80 01/02/19 00:00 97.0 88 26 117/102 (107) 99 01/02/19 00:00 Nasal Cannula 2.0 01/01/19 23:00 69 19 113/62 (79) 98 01/01/19 22:00 74 20 130/66 (87) 99 01/01/19 21:00 67 18 114/62 (79) 100 01/01/19 20:30 75 17 119/68 (85) 99 01/01/19 20:00 Room Air 01/01/19 20:00 72 01/01/19 20:00 97.6 82 20 120/57 (78) 99 01/01/19 19:08 99 Nasal Cannula 2.0 28 01/01/19 19:08 76 20 99 Nasal Cannula 2.0 28 01/01/19 19:00 84 17 118/96 (103) 99 01/01/19 18:30 74 20 120/62 (81) 100 01/01/19 18:00 81 16 119/50 (73) 97 01/01/19 17:30 74 16 109/61 (77) 99 01/01/19 17:00 70 20 108/60 (76) 100 01/01/19 16:30 75 20 111/64 (80) 100 01/01/19 16:00 97.3 75 18 109/43 (65) 98 01/01/19 16:00 Nasal Cannula 2.0 01/01/19 16:00 86 01/01/19 15:30 72 20 108/42 (64) 100 01/01/19 15:00 95 18 128/52 (77) 98 Intake and Output 01/01/19 01/02/19 19:00 07:00 Intake Total 134.874 ml 276.786 ml Output Total 100 ml 600 ml Balance 34.874 ml -323.214 ml Intake Oral 120 ml IV Total 134.874 ml 156.786 ml Output Urine Total 100 ml 600 ml # Voids 1 2 # Bowel Movements 2 Laboratory Tests 01/02/19 04:09: White Blood Count 7.1, Red Blood Count 5.04, Hemoglobin 13.9, Hematocrit 42.9, Mean Corpuscular Volume 85, Mean Corpuscular Hemoglobin 27.6, Mean Corpuscular Hemoglobin Concent 32.4, Red Cell Distribution Width 12.6, Platelet Count 212, Mean Platelet Volume 6.2L, Neutrophils (%) (Auto) 60.0, Lymphocytes (%) (Auto) 26.1, Monocytes (%) (Auto) 7.4, Eosinophils (%) (Auto) 5.0H, Basophils (%) (Auto ) 1.4, Activated Partial Thromboplast Time 56H, Sodium Level 138, Potassium Level 3.7, Chloride Level 106, Carbon Dioxide Level 24, Anion Gap 8, Blood Urea Nitrogen 11, Creatinine 0.9, Estimat Glomerular Filtration Rate , Glucose Level 125H, Calcium Level 9.0, Troponin I 0.124H 01/02/19 12:05: Activated Partial Thromboplast Time 118H Height (Feet): 5 Height (Inches): 2.00 Weight (Pounds): 126 Objective gen- nad, comfortable, eating lunch cv- rrr, no m,r,g resp- ctab no w,r,c abd- soft, nontender no masses ext- normal muscle tone, no edema neuro- no obvious deficits Cris Mariee DO Jan 02, 2019 14:51
--- NOTE | 2019-01-02 15:08 | NUR ---
NURSE NOTES: Received orders for nitro ointment 1inch TID, first dose now per Dr. Mariee. Read back given and verified. Addendum: 01/02/19 at 1513 by ADITI BURTON RN Nitro ointment for PRN chest pain.
[2019-01-02] MEDS ORDERED: Nitroglycerin 2% oint pkt TOPIC SCH (15:15)
[2019-01-02] MEDS ORDERED: Nitroglycerin 2% oint pkt TOPIC PRN ×2 (15:15→18:31)
--- NOTE | 2019-01-02 18:29 | NUR ---
TRANSFER TO FLOOR: Patient transferred to [facility], per Dr. Mariee. Report given to Olga Valentino RN. Patient has no belongings, cane taken home by Holly (morris). Holly is at bedside and informed of transfer. patient denies any CP and/or s/sx of distress.
[2019-01-02] MEDS ORDERED: Mylanta II UD 30ml ORAL PRN (18:30)
--- NOTE | 2019-01-02 18:30 | NUR ---
NURSE NOTES: Patient transferred from ICU and received report from Jayde/RN, Patient awake and alert, No sign of distress/SOB noted. On 2L nasal canula. denies pain at this time. IV site patent, no bleeding or infiltration, Heparin dripp running at 8U/Kg/Hr. Bed in low position and locked. Call light within reach. Will continue plan of care.
[2019-01-02] MEDS ORDERED: Morphine Sulfate 2mg/ml Inj(IV/IM USE ONLY) IVP PRN (18:31)
[2019-01-02] MEDS ORDERED: Nitroglycerin Subl 0.4mg tab SL PRN (18:31)
[2019-01-02] MEDS ORDERED: Miralax 17gm pkt ORAL PRN (18:32)
--- NOTE | 2019-01-02 19:34 | NUR ---
HAND-OFF: Report given to Gus/RN, Patient is in stable condition. Endorsed plan of care.
--- NOTE | 2019-01-02 19:36 | NUR ---
NURSE NOTES: Received report from Olga RN, pt. received in bed, pt. is awake in bed A/O x's4- able to make needs known- Korean speaker, family is at bedside, no signs or symptoms of acute cardiac or respiratory distress noted, bed in lowest position and call light within easy reach, bed alarm on, side rails up x's 3 and safety brakes engaged, pt. appears to be clean and dry, Left hand 20G IV intact and patent, Lt. AC 18G running heparin drip at 8U/kg/hr- IV intact and patent, safety measures continued, will continue with plan of care.
[2019-01-02] MEDS: Atorvastatin 80mg tab ORAL SCH (20:25)
[2019-01-03] VITALS: BP 117/56
--- NOTE | 2019-01-03 03:10 | NUR ---
NURSE NOTES: Received lab results for PTT greater than 150- from Osmel at lab- held PTT for 60 minutes and will restart in an hour decreasing heparin drip from 12U/kg/hr to 8U/kg/hr-per Yana at [facility] will send out label and to order another PTT for 10am. Will order PTT.
[2019-01-03 04:00] VITALS: BP 123/70
[2019-01-03] MEDS ORDERED: Heparin 25,000u/D5W 500ml 500 ML IV SCH ×3 (04:00→18:15)
--- NOTE | 2019-01-03 07:00 | NUR ---
HAND-OFF: Report given to Olga RN, pt. remains stable and no signs of distress noted.
--- NOTE | 2019-01-03 07:05 | NUR ---
NURSE NOTES: Received report from Gus/RN, Patient is asleep, lying semi-cortes, resting comfortably, on 2L nasal canula , No acute distress/SOB noted. Able to make needs known. IV site patent, no bleeding or infiltration noted. Heparin Dripp running @ 8U/KG/Hr. Bed in low position and locked. Bed alarm on, Side rails up x2, Call light and personal belonging within reach. Will continue plan of care.
[2019-01-03 08:00] VITALS: BP 132/82
[2019-01-03] MEDS: Aspirin Baby 81mg ORAL SCH (09:28)
[2019-01-03] MEDS: Docusate 100mg cap ORAL SCH ×2 (09:28→20:55)
--- NOTE | 2019-01-03 10:44 | NUR ---
TRANSFER UPDATE CALLED [facility] AND SPOKE WITH NIKKI PATIENT REMAINS ON THE LIST FOR TRANSFER AND THEY WILL CONTACT US WHEN BED BECOMES AVAILABLE
--- NOTE | 2019-01-03 10:46 | Cardiology Progress Note ---
Assessment/Plan Status: stable Assessment/Plan Assessment/Plan Status: stable Assessment/Plan: Assessment/Plan 78 yo F PMH of DM-2, HTN, DLD, Asthma, Osteoperosis, presents complaining of left sided exertional chest pain,fever of 102, and weakness x 3 months. Chest pain/elevated troponin -trend EKG/Troponin -Echocardiogram -transfer to [facility] for cardiac cath -Aspirin -Heparin gtt -nitropaste DM - ISS - accuchecks qac and qhs DLD - continue statin Subjective Cardiovascular: Reports: no symptoms Respiratory: Reports: no symptoms Gastrointestinal/Abdominal: Reports: no symptoms Genitourinary: Reports: no symptoms Subjective Patient has been accepted to [facility] bed pending Remains on heparin nitro paste Stable, CP controlled vitals stable Objective Last 24 Hour Vital Signs Date Time Temp Pulse Resp B/P (MAP) Pulse Ox O2 Delivery O2 Flow Rate FiO2 01/03/19 08:07 94 Nasal Cannula 2.0 28 01/03/19 08:07 93 18 94 Nasal Cannula 2.0 28 01/03/19 04:00 97.5 73 18 123/70 (87) 99 01/03/19 04:00 79 01/03/19 00:00 68 01/03/19 00:00 98.1 75 19 117/56 (76) 98 01/02/19 21:00 Nasal Cannula 2.0 01/02/19 20:00 91 01/02/19 20:00 98.1 80 19 133/68 (89) 95 01/02/19 19:57 98 Nasal Cannula 2.0 28 01/02/19 19:57 68 18 98 Nasal Cannula 2.0 28 01/02/19 18:00 86 19 128/78 (95) 98 01/02/19 17:00 99.2 80 19 134/78 (96) 98 01/02/19 16:00 85 01/02/19 16:00 83 19 144/78 (100) 98 01/02/19 16:00 Nasal Cannula 2.0 01/02/19 15:00 90 19 143/75 (97) 98 01/02/19 14:00 97 19 128/66 (86) 98 01/02/19 13:00 98 19 142/61 (88) 98 01/02/19 12:28 110/70 01/02/19 12:00 87 01/02/19 12:00 99.1 87 19 110/70 (83) 99 01/02/19 12:00 Nasal Cannula 2.0 01/02/19 11:00 82 19 130/62 (84) 98 General Appearance: no apparent distress, alert EENT: PERRL/EOMI, normal ENT inspection Neck: non-tender, normal alignment, supple Rhythm: NSR Cardiovascular: normal peripheral pulses, normal rate Respiratory/Chest: chest wall non-tender, lungs clear Abdomen: normal bowel sounds, non tender, soft, no organomegaly, no mass Extremities: normal range of motion, non-tender, normal inspection, no calf tenderness, no swelling 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: 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 II-XII grossly normal, no motor/sensory deficits Intake and Output 01/02/19 01/03/19 18:59 06:59 Intake Total 530.36 ml 123.12 ml Output Total 1050 ml 0 ml Balance -519.64 ml 123.12 ml Intake Oral 390 ml IV Total 140.36 ml 123.12 ml Output Urine Total 1050 ml 0 ml # Voids 5 2 Laboratory Tests Test 01/02/19 12:05 01/02/19 19:10 01/03/19 02:23 01/03/19 10:10 Activated Partial Thromboplast Time 118 SEC (23-33) H 50 SEC (23-33) H > 150 SEC (23-33) *H Pending Microbiology Date/Time Source Procedure Growth Status 12/31/18 12:05 Blood Blood Culture - Preliminary NO GROWTH AFTER 48 HOURS Resulted 12/31/18 11:50 Blood Blood Culture - Preliminary NO GROWTH AFTER 48 HOURS Resulted Marcos Melo MD Jan 03, 2019 10:46
[2019-01-03] MEDS ORDERED: Heparin 5000 units/ml inj IV SCH (11:00)
[2019-01-03 12:00] VITALS: BP 123/71
[2019-01-03] MEDS: Albuterol/Ipratropium 3ml neb HHN PRN (14:21)
[2019-01-03 16:00] VITALS: BP 115/50
--- NOTE | 2019-01-03 16:40 | General Progress Note ---
Assessment/Plan Status: stable Assessment/Plan: 78 yo F PMH of DM-2, HTN, DLD, Asthma, Osteoperosis, presents complaining of left sided exertional chest pain,fever of 102, and weakness x 3 months. # NSTEMI - trend troponin: uptrending-> down (01/02) - trend ekg's: Reviewed - reviewed tte - cards consult: Dr. Melo - lipitor - asa -Continue nitro along with current medications # Fever- resolved - no leukocytosis or active new complaints - us neg - f/u cxr : reviewed - check blood culture: ngt - trend cbc # DM - ISS - accuchecks qac and qhs # DLD - statin - flp # Asthma - stable # Osteoperosis # FULL CODE time of my note does not reflect time of encounter Subjective Date patient seen: Jan 03, 2019 Allergies: Coded Allergies: No Known Allergies (Unverified , 12/30/18) Subjective Family and friends at bedside. Patient continues to deny chest pain or shortness of breath or dizziness. Pending transfer to [facility] for cath Objective Last 24 Hour Vital Signs Date Time Temp Pulse Resp B/P (MAP) Pulse Ox O2 Delivery O2 Flow Rate FiO2 01/03/19 14:31 78 20 98 Nasal Cannula 2.0 28 01/03/19 14:21 77 20 98 Nasal Cannula 2.0 28 01/03/19 12:00 76 01/03/19 12:00 98.1 73 20 123/71 (88) 98 01/03/19 09:00 Nasal Cannula 2.0 01/03/19 08:07 94 Nasal Cannula 2.0 28 01/03/19 08:07 93 18 94 Nasal Cannula 2.0 28 01/03/19 08:00 98.1 94 20 132/82 (99) 96 01/03/19 08:00 91 01/03/19 04:00 97.5 73 18 123/70 (87) 99 01/03/19 04:00 79 01/03/19 00:00 68 01/03/19 00:00 98.1 75 19 117/56 (76) 98 01/02/19 21:00 Nasal Cannula 2.0 01/02/19 20:00 91 01/02/19 20:00 98.1 80 19 133/68 (89) 95 01/02/19 19:57 98 Nasal Cannula 2.0 28 01/02/19 19:57 68 18 98 Nasal Cannula 2.0 28 01/02/19 18:00 86 19 128/78 (95) 98 01/02/19 17:00 99.2 80 19 134/78 (96) 98 Intake and Output 01/02/19 01/03/19 19:00 07:00 Intake Total 523.00 ml 123.12 ml Output Total 1050 ml 0 ml Balance -527.00 ml 123.12 ml Intake Oral 390 ml IV Total 133.00 ml 123.12 ml Output Urine Total 1050 ml 0 ml # Voids 5 2 Laboratory Tests 01/02/19 19:10: Activated Partial Thromboplast Time 50H 01/03/19 02:23: Activated Partial Thromboplast Time > 150*H 01/03/19 10:10: Activated Partial Thromboplast Time 42H Height (Feet): 5 Height (Inches): 2.00 Weight (Pounds): 122 Objective gen- nad, comfortable cv- rrr, no m,r,g resp- ctab no w,r,c abd- soft, nontender no masses ext- normal muscle tone, no edema neuro- no obvious deficits Cris Mariee DO Jan 03, 2019 16:39
--- NOTE | 2019-01-03 19:36 | NUR ---
HAND-OFF: Report given to Armjanessan/RN, Patient is awake and in stable condition. Endorsed plan ofm care.
[2019-01-03 20:00] VITALS: BP 120/63
[2019-01-03] MEDS: Atorvastatin 80mg tab ORAL SCH (20:56)
[2019-01-04] VITALS: BP 110/54
[2019-01-04] MEDS ORDERED: Heparin 25,000u/D5W 500ml 500 ML IV SCH ×2 (01:15→09:15)
[2019-01-04] MEDS ORDERED: Heparin 5000 units/ml inj IV SCH ×2 (01:15→16:00)
[2019-01-04 04:00] VITALS: BP 120/59
--- NOTE | 2019-01-04 07:18 | NUR ---
HAND-OFF: Report given to Jessica LIANG.
--- NOTE | 2019-01-04 07:47 | NUR ---
NURSE NOTES: Received patient from Yayo Law. Patient wake in bed. Denies pain or discomfort. Heparin gtt @ 13 units/kg/hr= 14.82 ml/hr via Left forearm IV peripheral. No active bleeding noted. Awaiting PTT results. will follow.
[2019-01-04 08:00] VITALS: BP 128/77
--- NOTE | 2019-01-04 08:44 | NUR ---
CASE MANAGEMENT:REVIEW 01/04/19 SI: NSTEMI 98.3 67 18 120/59 97% ON 2L/NC IS: HEPARIN GTT ASA PO QD : TELEMETRY STATUS PLAN: PATIENT IS ON THE LIST AT [facility] TO TRANSFER WHEN BED IS AVAILABLE
[2019-01-04] MEDS: Docusate 100mg cap ORAL SCH ×2 (08:48→21:07)
[2019-01-04] MEDS: Aspirin Baby 81mg ORAL SCH (08:48)
--- NOTE | 2019-01-04 08:48 | NUR ---
TRANSFER UPDATE REQUIRING CARDIAC CATHETERIZATION CALLED [facility] AND SPOKE WITH SHAWN T: [phone] SHAWN SAID THEY WILL CALL [facility] LATER TODAY IF BED BECOMES AVAILABLE
--- NOTE | 2019-01-04 09:00 | NUR ---
NURSE NOTES: Received call from lab PTT >150. Pharmacy AWARE. PROTOCOL FOLLOWED. Will hold heparin drip for 60 minutes and decrease rate to 9 units/kg/hr. repeat PTT after 6 hours will follow.
--- NOTE | 2019-01-04 10:22 | General Progress Note ---
Assessment/Plan Status: stable Assessment/Plan: 78 yo F PMH of DM-2, HTN, DLD, Asthma, Osteoperosis, presents complaining of left sided exertional chest pain,fever of 102, and weakness x 3 months. # NSTEMI - trend troponin: uptrending-> down (01/02) - trend ekg's: Reviewed - reviewed tte - cards consult: Dr. Melo - lipitor - asa - coreg -nitro prn -Continue current medications -Pending transfer to [facility] for cath, per case repairer note possibly today, 01/04 # Fever- resolved - no leukocytosis or active new complaints - us neg - f/u cxr : reviewed - check blood culture: ngt - trend cbc # DM - ISS - accuchecks qac and qhs # DLD - statin - flp # Asthma - stable # Osteoporosis # FULL CODE time of my note does not reflect time of encounter Subjective Date patient seen: Jan 04, 2019 Allergies: Coded Allergies: No Known Allergies (Unverified , 12/30/18) Subjective Patient doing well denies chest pain, shortness of breath, dizziness. Patient states she has not had chest pain since admission. Objective Last 24 Hour Vital Signs Date Time Temp Pulse Resp B/P (MAP) Pulse Ox O2 Delivery O2 Flow Rate FiO2 01/04/19 09:18 98.9 01/04/19 08:00 98.9 83 19 128/77 (94) 97 01/04/19 04:00 98.3 67 18 120/59 (79) 97 01/04/19 04:00 77 01/04/19 00:00 98.6 86 18 110/54 (72) 95 01/04/19 00:00 98 01/03/19 21:00 Nasal Cannula 2.0 01/03/19 20:00 98.1 88 18 120/63 (82) 97 01/03/19 20:00 90 01/03/19 19:41 97 Nasal Cannula 2.0 28 01/03/19 19:41 80 18 97 Nasal Cannula 2.0 28 01/03/19 16:00 68 01/03/19 16:00 98.2 76 20 115/50 (71) 97 01/03/19 14:31 78 20 98 Nasal Cannula 2.0 28 01/03/19 14:21 77 20 98 Nasal Cannula 2.0 28 01/03/19 12:00 76 01/03/19 12:00 98.1 73 20 123/71 (88) 98 Intake and Output 01/03/19 01/04/19 18:59 06:59 Intake Total 369.12 ml Balance 369.12 ml Intake Oral 360 ml IV Total 9.12 ml # Voids 3 Laboratory Tests 01/03/19 17:09: Activated Partial Thromboplast Time 124H 01/04/19 00:15: Activated Partial Thromboplast Time 48H 01/04/19 07:30: Activated Partial Thromboplast Time > 150*H Height (Feet): 5 Height (Inches): 2.00 Weight (Pounds): 122 Objective gen- nad, comfortable cv- rrr, no m,r,g resp- ctab no w,r,c abd- soft, nontender no masses ext- normal muscle tone, no edema neuro- no obvious deficits Cris Mariee DO Jan 04, 2019 10:22
[2019-01-04 12:00] VITALS: BP 119/76
[2019-01-04 16:00] VITALS: BP 110/79
[2019-01-04] MEDS: Heparin 25,000u/D5W 500ml 500 ML IV SCH ×2 (16:08→23:12)
--- NOTE | 2019-01-04 16:36 | NUR ---
NURSE NOTES: PTT resulted = 61. protocol followed. 2000 units given via bolus. rate increase to 11 units/kg/hr. Will repeat PTT after 6 hours. will continue to monitor.
--- NOTE | 2019-01-04 19:35 | NUR ---
NURSE NOTES: Received pt and report from AZUL Lopez. Observed pt resting in bed with both eyes open. Pt is A/Ox3. campus monitor is in placed, IV site intact, asymptomatic, and patent; currently running Heparin drip @ 11 units/kg/hr (rate: 12.188cc/hr). Bed is in the lowest position and locked, call light within reach. No signs/symptoms of acute distress noted at this time. Will continue plan of care.
--- NOTE | 2019-01-04 19:45 | NUR ---
HAND-OFF: Report given to Yayo Archer. Plan of care endorsed.
[2019-01-04 20:00] VITALS: BP 119/62
[2019-01-04] MEDS: Atorvastatin 80mg tab ORAL SCH (21:07)
--- NOTE | 2019-01-04 23:01 | NUR ---
NURSE NOTES: Lisette PharmacistAndria said to keep Heparin rate the same at 11 units/kg/hr (rate: 12.188). Will note and carry out. Addendum: 01/04/19 at 2350 by Maritza Triana Mai, RN Next PTT at 0400 Addendum: 01/05/19 at 0218 by Maritza Triana Mai, RN Rate: 12.188cc/hr
[2019-01-05] VITALS: BP 110/57
[2019-01-05 04:00] VITALS: BP 142/76
--- NOTE | 2019-01-05 06:32 | NUR ---
NURSE NOTES: Dixie Fuchs ordered to continue Heparin rate at 11 units/kg/hr (rate: 12.188cc/hr) and to reorder next PTT 01/06/19 @ 0400. Will note and carry out.
[2019-01-05] MEDS: Heparin 25,000u/D5W 500ml 500 ML IV SCH ×2 (06:47→13:23)
--- NOTE | 2019-01-05 07:25 | NUR ---
HAND-OFF: Report given to AZUL Lopez.
--- NOTE | 2019-01-05 07:44 | NUR ---
NURSE NOTES: Received report from Yayo Archer. Patient awake and alert. Denies pain or discomfort. Heparin gtt running @11 units/kg/hr or 12.18 ml/hr. via Right forearm peripheral IV. Last PTT therapeutic repeat lab in am @0400. Safety precautions in place. call light within patients reach.
[2019-01-05 08:00] VITALS: BP 125/87
[2019-01-05] MEDS: Albuterol/Ipratropium 3ml neb HHN PRN ×2 (09:13→22:44)
[2019-01-05] MEDS: Docusate 100mg cap ORAL SCH ×2 (09:30→21:04)
[2019-01-05] MEDS: Aspirin Baby 81mg ORAL SCH (09:31)
[2019-01-05 12:00] VITALS: BP 118/81
--- NOTE | 2019-01-05 12:31 | General Progress Note ---
Assessment/Plan Status: stable Assessment/Plan: 78 yo F PMH of DM-2, HTN, DLD, Asthma, Osteoperosis, presents complaining of left sided exertional chest pain,fever of 102, and weakness x 3 months. # NSTEMI - trend troponin: uptrending-> down (01/02) - trend ekg's: Reviewed - reviewed tte - cards consult: Dr. Melo - lipitor - asa - coreg -nitro prn -Continue current medications -Pending transfer to [facility] for cath, per correctional counselor/case manager note possibly today, 01/04 # Fever- resolved - no leukocytosis or active new complaints - us neg - f/u cxr : reviewed - check blood culture: ngt - trend cbc # DM - ISS - accuchecks qac and qhs # DLD - statin - flp # Asthma - stable # Osteoporosis # FULL CODE time of my note does not reflect time of encounter Subjective Date patient seen: Jan 05, 2019 Allergies: Coded Allergies: No Known Allergies (Unverified , 12/30/18) All Systems: reviewed and negative except above Subjective Patient doing well denies chest pain, shortness of breath, dizziness. Patient states she has not had chest pain since admission. Smiling and comfortable pending transfer Objective Last 24 Hour Vital Signs Date Time Temp Pulse Resp B/P (MAP) Pulse Ox O2 Delivery O2 Flow Rate FiO2 01/05/19 12:00 98.7 82 20 118/81 (93) 98 01/05/19 10:08 97.5 01/05/19 09:31 80 125/87 01/05/19 09:14 88 18 97 Nasal Cannula 2.0 28 01/05/19 09:14 80 18 97 Room Air 21 01/05/19 09:14 97 Room Air 21 01/05/19 09:05 82 18 97 Room Air 21 01/05/19 09:00 Nasal Cannula 2.0 01/05/19 09:00 74 01/05/19 08:00 97.5 80 18 125/87 (100) 97 01/05/19 04:00 98.4 67 16 142/76 (98) 94 01/05/19 04:00 67 01/05/19 00:00 64 01/05/19 00:00 98.3 62 18 110/57 (74) 95 01/04/19 21:08 73 119/62 01/04/19 21:00 Nasal Cannula 2.0 01/04/19 20:00 99.1 73 17 119/62 (81) 95 01/04/19 20:00 84 01/04/19 18:45 96 Room Air 21 01/04/19 18:40 53 20 96 Room Air 21 01/04/19 16:00 68 01/04/19 16:00 98.0 79 18 110/79 (89) 98 Intake and Output 01/04/19 01/05/19 18:59 06:59 Intake Total 374.068 ml Balance 374.068 ml Intake Oral 240 ml IV Total 134.068 ml # Voids 1 # Bowel Movements 1 Laboratory Tests 01/04/19 15:15: Activated Partial Thromboplast Time 61H 01/04/19 21:54: Activated Partial Thromboplast Time 95H 01/05/19 04:00: Activated Partial Thromboplast Time 77H Height (Feet): 5 Height (Inches): 2.00 Weight (Pounds): 126 Objective gen- nad, comfortable cv- rrr, no m,r,g resp- ctab no w,r,c abd- soft, nontender no masses ext- normal muscle tone, no edema neuro- no obvious deficits Cris Mariee DO Jan 05, 2019 12:31
[2019-01-05 16:00] VITALS: BP 116/62
--- NOTE | 2019-01-05 19:23 | NUR ---
HAND-OFF: Report given to Yayo Coronel. Plan of care endorsed.
--- NOTE | 2019-01-05 19:25 | NUR ---
NURSE NOTES: Received report from Oswald Cabral RN. Patient in bed AAO X4 British speaking with some Qatari. No complaints of acute pain or discomfort noted and kept clean, dry, and comfortable in bed. IV line intact and patent with continuous cardiac monitoring in place. Able to ambulate with minimal assistance to the bathroom and out of bed. On Heparin drip as ordered, tolerating well with no A/R noted. Safety precaution in place; siderails X2 up, call light within reach, bed in lowest position, brakes and alarm on at all times. Needs and wants anticipated and attended, will continue plan of care and monitor for any changes noted. Awaiting call back from [facility] for bed availability for Cardiac cancerization
[2019-01-05 20:00] VITALS: BP 121/64
[2019-01-05] MEDS: Atorvastatin 80mg tab ORAL SCH (21:04)
[2019-01-06] VITALS: BP 114/77
--- NOTE | 2019-01-06 02:19 | NUR ---
NURSE NOTES: Patient in bed asleep with no S/S of distress. Will continue to monitor
[2019-01-06 03:58] VITALS: BP 133/71
[2019-01-06 05:36] LABS: BASOPHILS % (AUTO) 1.6 % (0.0-2.0); EOSINOPHILS % (AUTO) 4.8 % (0.0-3.0); HEMATOCRIT 43.6 % (37.0-47.0); HEMOGLOBIN 14.3 G/DL (12.0-16.0); LYMPHOCYTES % (AUTO) 30.8 % (20.0-45.0); MEAN CORPUSCULAR VOLUME 85 FL (80-99); MONOCYTES % (AUTO) 8.6 % (1.0-10.0); NEUTROPHILS % (AUTO) 54.2 % (45.0-75.0); PLATELET COUNT 180 K/UL (150-450); RED BLOOD COUNT 5.14 M/UL (4.20-5.40); RED CELL DISTRIBUTION WIDTH 12.6 % (11.6-14.8); WHITE BLOOD COUNT 5.5 K/UL (4.8-10.8)
[2019-01-06 05:59] LABS: ANION GAP 9 mmol/L (5-15); BLOOD UREA NITROGEN 15 mg/dL (7-18); CALCIUM 9.4 MG/DL (8.5-10.1); CARBON DIOXIDE 26 MMOL/L (21-32); CHLORIDE 101 MMOL/L (98-107); CREATININE 1.1 MG/DL (0.55-1.30); POTASSIUM 4.1 MMOL/L (3.5-5.1); SODIUM 136 MMOL/L (136-145)
[2019-01-06] MEDS ORDERED: Heparin 25,000u/D5W 500ml 500 ML IV SCH ×4 (06:00→14:00)
[2019-01-06] MEDS ORDERED: Heparin 5000 units/ml inj IV ONE (06:00)
--- NOTE | 2019-01-06 06:40 | NUR ---
NURSE NOTES: Spoke with [facility] regarding Haprin drip label. According to [facility] they cant print 13u/kg/hr but [facility] recognizes new label with new rate. Will continue orders
--- NOTE | 2019-01-06 07:13 | NUR ---
HAND-OFF: Report given to Oswald Cabral RN. Patient in bed in stable condition. Endorsed plan of care.
--- NOTE | 2019-01-06 07:27 | NUR ---
NURSE NOTES: Received patient from Yayo Coronel. Patient awake and alert at bedside. Denies pain or discomfort. No c/o pain or discomfort. Heparin gtt running @ 13 units/kg/hr peripheral IV clean dry and intact. no s/s of infiltration noted. next PTT at 1230. all safety precautions in place. Call torres within patients reach. will continue plan of care.
[2019-01-06 08:00] VITALS: BP 121/73
[2019-01-06] MEDS: Aspirin Baby 81mg ORAL SCH (09:00)
[2019-01-06] MEDS: Docusate 100mg cap ORAL SCH (09:00)
--- NOTE | 2019-01-06 11:24 | General Progress Note ---
Assessment/Plan Status: stable Assessment/Plan: 78 yo F PMH of DM-2, HTN, DLD, Asthma, Osteoperosis, presents complaining of left sided exertional chest pain,fever of 102, and weakness x 3 months. # NSTEMI - trend troponin: uptrending-> down (01/02) - trend ekg's: Reviewed - reviewed tte - cards consult: Dr. Melo - lipitor - asa - coreg -nitro prn -Continue current medications -Pending transfer to [facility] for [facility] # Fever- resolved - no leukocytosis or active new complaints - us neg - f/u cxr : reviewed - check blood culture: ngt - trend cbc # DM - ISS - accuchecks qac and qhs # DLD - statin - flp # Asthma - stable # Osteoporosis # FULL CODE time of my note does not reflect time of encounter Subjective Date patient seen: Jan 06, 2019 Allergies: Coded Allergies: No Known Allergies (Unverified , 12/30/18) All Systems: reviewed and negative except above Subjective Patient doing well denies chest pain, . Patient wants to use her own inhaler prn. Patient states she has not had chest pain since admission. Smiling and comfortable pending transfer Objective Last 24 Hour Vital Signs Date Time Temp Pulse Resp B/P (MAP) Pulse Ox O2 Delivery O2 Flow Rate FiO2 01/06/19 09:34 97.8 01/06/19 09:00 77 01/06/19 09:00 Nasal Cannula 2.0 01/06/19 08:59 73 121/73 01/06/19 08:00 97.8 73 20 121/73 (89) 92 01/06/19 04:00 71 01/06/19 03:58 98.1 75 20 133/71 (91) 95 01/06/19 00:00 59 01/06/19 00:00 97.6 62 18 114/77 (89) 96 01/05/19 22:45 71 19 95 Room Air 21 71 93 01/05/19 21:04 75 121/64 01/05/19 21:00 Nasal Cannula 2.0 01/05/19 20:07 91 Room Air 21 01/05/19 20:06 87 18 91 Room Air 21 01/05/19 20:00 79 01/05/19 20:00 98.4 75 20 121/64 (83) 96 8/24/19 16:00 97.4 65 18 116/62 (80) 98 01/05/19 16:00 63 01/05/19 12:00 98.7 82 20 118/81 (93) 98 01/05/19 12:00 81 Intake and Output 01/05/19 01/06/19 19:00 07:00 Intake Total 360 ml 120 ml Balance 360 ml 120 ml Intake Oral 360 ml 120 ml # Voids 3 2 # Bowel Movements 1 Laboratory Tests 01/06/19 04:15: White Blood Count 5.5, Red Blood Count 5.14, Hemoglobin 14.3, Hematocrit 43.6, Mean Corpuscular Volume 85, Mean Corpuscular Hemoglobin 27.8, Mean Corpuscular Hemoglobin Concent 32.8, Red Cell Distribution Width 12.6, Platelet Count 180, Mean Platelet Volume 7.1, Neutrophils (%) (Auto) 54.2, Lymphocytes (%) (Auto) 30.8, Monocytes (%) (Auto) 8.6, Eosinophils (%) (Auto) 4.8H, Basophils (%) (Auto ) 1.6, Activated Partial Thromboplast Time 62H, Sodium Level 136, Potassium Level 4.1, Chloride Level 101, Carbon Dioxide Level 26, Anion Gap 9, Blood Urea Nitrogen 15, Creatinine 1.1, Estimat Glomerular Filtration Rate , Glucose Level 367H, Calcium Level 9.4 Height (Feet): 5 Height (Inches): 2.00 Weight (Pounds): 127 Objective gen- nad, comfortable cv- rrr, no m,r,g resp-some right wheezing abd- soft, nontender no masses ext- normal muscle tone, no edema neuro- no obvious deficits Cris Mariee DO Jan 06, 2019 11:24
[2019-01-06 11:53] VITALS: BP 120/60
--- NOTE | 2019-01-06 15:30 | NUR ---
NURSE NOTES: Received call from Anuja from [facility] admitting. Patient has been accepted and now have available bed. Dr. Mariee Aware order received for transfer. Family aware. [place] had arranged [facility] at 1700. Will follow.
[2019-01-06 16:30] VITALS: BP 121/66
--- NOTE | 2019-01-06 16:38 | NUR ---
NURSE NOTES: Report given to Yayo Bales. accepting nurse at [facility]. Awaiting transport to [facility] patient.
--- NOTE | 2019-01-06 18:09 | NUR ---
NURSE NOTES: Patient discharged to [facility] @ 1750. Accompanied by 3 EMS attendant. Patient left floor in no distress/discomfort. Family at bedside at time of transfer. Heart monitor taken off from patient.
--- NOTE | 2019-01-07 18:09 | Discharge Summary ---
Discharge Summary Hospital Course Date of Admission Dec 30, 2018 at 23:14 Date of Discharge Jan 06, 2019 at 17:55 Admitting Diagnosis Chest Pain, Weakness Reason for Hospitalization: chest pain HPI Ana M Lomeli is a 78 year old female who was admitted on Dec 30, 2018 at 23:14 for Chest Pain,Weakness Consultations Cardiology Procedures none Hospital Course 78 yo F PMH of DM-2, HTN, DLD, Asthma, Osteoperosis, presents complaining of left sided exertional chest pain,fever of 102, and weakness x 3 months. She was found to have elevated troponins and placed on heparin gtt. Cardiology evaluated and recommended transfer to [facility] for cath. Once bed became available , patient was transfered. # NSTEMI - trend troponin: uptrending-> down (01/02) - trend ekg's: Reviewed - reviewed tte - cards consult: Dr. Melo - lipitor - asa - coreg -nitro prn -Continue current medications -Pending transfer to [facility] for cath # Fever- resolved - no leukocytosis or active new complaints - us neg - f/u cxr : reviewed - check blood culture: ngt - trend cbc # DM - ISS - accuchecks qac and qhs # DLD - statin - flp # Asthma - stable # Osteoporosis # FULL CODE patient discharged on [facility]ait[facility] [place] in hospital, hep gtt, bb, statin time of my note does not reflect time of encounter Discharge Condition Upon Discharge: stable Discharge Disposition Patient was discharged to [facility] Discharge Diagnoses: (1) NSTEMI (non-ST elevated myocardial infarction) (2) Diabetes (3) Chest pain (4) Asthma Cris Mariee DO Jan 07, 2019 18:09
== END 2019-01-06 17:55 | disposition short-term general hospital (02) | DRG 282 ==
LOC: EMR 22:45 → 2W 23:14 → EDBEDREQ 12-31 00:29 → 2E 12-31 23:49 → ICU 01-01 12:05 → 2E 01-02 18:10
DX: I21.4 Non-ST elevation (NSTEMI) myocardial infarction (principal); J45.909 Unspecified asthma, uncomplicated; E11.9 Type 2 diabetes mellitus without complications; M81.0 Age-related osteoporosis without current pathological fracture; E78.5 Hyperlipidemia, unspecified; R50.9 Fever, unspecified
CPT/HCPCS: 36415; 71045; 80048; 80053; 80061; 81003; 82550; 82962; 83605; 83690; 83735; 83880; 84443; 84484; 85025; 85610; 85730; 87040; 93005; 93306; 94640; 94664; 96360; 99285; J7620